=== PATIENT | female | born 1980 | race Caucasian/White ===

== ENCOUNTER 2016-09-24 11:38 | Observation (INO) | payer MEDICAID, OTHER ==
[~2016-09-24] VITALS: Ht 165.1 cm; Wt 51.0 kg
[~2016-09-24 11:38] MED LIST: QUET1TAB66 PO
[2016-09-24] MEDS ORDERED: ONDANSETRON HCL 4 MG/2 ML VIAL IV ONE (12:15)
[2016-09-24] MEDS ORDERED: cloNIDine HCL 0.1 MG TAB PO ONE (12:15)
[2016-09-24] MEDS ORDERED: SUCRALFATE 1 GM TAB PO ONE (12:15)
[2016-09-24] MEDS: LACTATED RINGER'S 1000 ML INJ 1,000 ML IV SCH ×3 (12:43→21:45)
--- NOTE | 2016-09-24 12:47 | PD ---
HPI Chief Complaint Severe nausea and vomiting at 16 weeks weaning of methadone to oxycodone and then to buprenorphine (from long acting to short acting to partial agonist) Date Seen: September 24, 2016 Time Seen: 12:16 Travel History International Travel<30 Days: No Contact w/Intl Traveler<30Days: No Known Affected Area: No History of Present Illness HPI 36 yo swf at 16 weeks referred to me by [facility] for high risk situation of methadone maintenance and hep C. First seen at 13 weeks EGA. 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 She began substance use consistently about 10- 12 years ago. This was IV and oral. She has been on methadone and no other substances other than cigarettes for two years. Since coming to [place] she has gone to the [facility] and paid $17 in [place] daily for her methadone. This was an unplanned but she desires to keep the and the child. She presented early to the [facility] for labs and then to our office for ultrasound. She told her [facility] counselor she was newly and in four weeks her methadone was increased from 90 to 170 mg. She was nodding off while at work and driving and did not want to continue this increasing dosage. She lost her job because of the nodding in the first half of the day. She was told this was necessary to protect the baby. At her first visit in my office she begged to be detoxed from the methadone or switched to buprenorphine. She was distraught and ashamed. We reviewed that she cannot be detoxed from methadone with daily doses greater than 40 mg per day at [place], nor would it be safe to do so on an outpatient basis. We reviewed that transitioning from methadone to buprenorphine would require a methadone free interval of up to a week or more and therefore was not possible. We reviewed that the standard of care was methadone, but in split doses as opposed to the rapid increase in single dosing in the first trimester. The current dose is quite high, difficult to afford and difficult to obtain daily, requiring daily trips to [facility]. We reviewed her status and discussed this situation with her mom and her dad on two separate occasions. She signed treatment plans and consents and we have agreed to try transitioning from methadone 170 to oxycodone (amount to be determined) and then to subutex through an office induction. She began this on Sunday the first. She was started on 120 mg oxycodone in divided doses and has not been to [facility] since. She was seen again on Sunday and has having some signs of withdrawal. She called today with severe nausea, vomiting and inability to hold down any oral intake. It is not clear if this is strictly related to transition or if her daughter brought home a GI virus from school. She has no fever. She denies diarrhea so far. She is having leg pains, restless legs, goose bumps and irritability. She is visibly dehydrated with dry lips and poor skin turgor. She is brought in for supportive care presuming this may be GI or infectious and exacerbated by the transitioning to short acting opioid. She is hep C positive, HIV, RPR,Hep B negative. History Past Medical History Medical History: Denies Significant Hx Obstetric History Obstetric History one term at 5 1/2 pounds now 7 years old Past Surgical History Narrative Surgical implants only Allergies-Medications (Allergen,Severity, Reaction): Coded Allergies: No Known Allergies (Verified , 09/06/09) Home Meds Active Scripts Quetiapine Fumarate (Seroquel)300 Mg [id number] Mg PO HS 30 Days Prov:See Greenberg MD 09/07/09 Reported Medications Quetiapine Fumarate (Seroquel)300 Mg [id number] Mg PO HS 09/06/09 Review of Systems General / Constitutional: No: Fever, Weight Gain, Chills, Other Eyes: No: Diploplia, Blurred Vision, Visual changes, Pain, Photophobia HENT: No: Headaches, Vertigo, Lightheadedness Cardiovascular: No: Irregular Rhythm, Chest Pain or Discomfort, Palpitations, Tachycardia, Syncope, Varicosities, Edema, Cyanosis Respiratory: No: Cough, Short of Breath, Other Gastrointestinal: Nausea, Vomiting, Abdominal Pain, Indigestion, No: Diarrhea Genitourinary: No: Decreased Urinary Output, Oliguria Musculoskeletal: No: Limited ROM, Weakness, Cramping, Edema, Pain Skin: No Rash, No Itching, No Dryness, No Lumps, No Change in Pigmentation, No Change in Nails, No Alopecia, No Lesions Neurologic: No: Weakness, Dizziness, Syncope, Focal Abnormalities, Coordination Problem, Headache, Slurred Speech, Seizures Psychiatric: Anxiety, Substance Abuse, No: Depression, Suicidal Ideations, Homicidal Ideation Endocrine: No: Heat Intolerance, Cold Intolerance, Polydipsia, Polyuria, Other Physical Exam Narrative GENERAL:thin, dehydrated SKIN: lips cracked, poor skin turgor HEAD: Normocephalic and atraumatic. EYES: No scleral icterus. No injection or drainage. Pupils neither pin point nor dilated ENT: No nasal drainage noted. no sneezing NECK: Supple, trachea midline. No JVD. CARDIOVASCULAR: Regular rate and rhythm without murmurs, gallops, or rubs. RESPIRATORY: Breath sounds equal bilaterally. No accessory muscle use. BREASTS: Bilateral exam showed no masses , no retractions, no nipple discharge. ABDOMEN/GI: Abdomen soft, non-tender, bowel sounds present, no rebound, no guarding 16 week size uterus and + FHTs EXTREMITIES: No cyanosis or edema. old track arvizu on left arm only. Right is fine. Nothing new BACK: Nontender without obvious deformity. No CVA tenderness. NEUROLOGICAL: Awake and alert. Motor and sensory grossly within normal limits. Five out of 5 muscle strength in all muscle groups. Normal speech. Data Data Orders Vital Signs (Adult) .ON ADMISSION (09/24/16 12:11) Urinalysis - C+S If Indicated (09/24/16 12:11) ^ Hydration (09/24/16 12:11) Cbc No Diff, Includes Plts (09/24/16 12:11) Comprehensive Metabolic Panel (09/24/16 12:11) Basic Metabolic Panel (Bmp) (09/24/16 12:11) Lactated Ringer's 1000 Ml Inj (Lr 1000 M (09/24/16 12:11) Sodium Chloride 0.9% Flush (Ns Flush) (09/24/16 21:00) Ondansetron Inj (Zofran Inj) (09/24/16 12:15) Sucralfate (Carafate) (09/24/16 12:15) Ob/Psych Drug Screen, Urine (09/24/16 12:11) Hydroxyzine Pamoate (Vistaril) (09/24/16 12:15) Clonidine (Catapres) (09/24/16 12:15) Oxycodone (Roxicodone) (09/24/16 12:15) MDM Medical Record Reviewed: Yes Narrative Course / MDM 16 week IUP Gastro enteritis vs hyperemesis gravidarum -- inability to tolerate any po opioid use disorder hep C Plan IV hydration check TSH, LFTs, CBC UA continue transition to oxycodone watch 24 hours Critical Care Time (mins): 20 Diagnosis Diagnosis: Primary Impression: Nausea and vomiting during prior to 22 weeks gestation Additional Impression: Opioid use disorder, moderate, in controlled environment Lisette Whitney MD September 24, 2016 12:47
[2016-09-24] MEDS ORDERED: SODIUM CHLORIDE 0.9% FLUSH 10 ML FLUSH IV FLUSH PRN (13:00)
[2016-09-24 13:14] LABS: HEMATOCRIT 34.4 % (35.0-46.0); MEAN CELL VOLUME 92.4 FL (80.0-100.0); MEAN CORPUSCULAR HEMOGLOBIN 31.2 PG (27.0-34.0); MEAN CORPUSCULAR HGB CONC 33.8 % (32.0-36.0); PLATELET COUNT 225 TH/MM3 (150-450); RED BLOOD COUNT 3.72 MIL/MM3 (4.00-5.30); RED CELL DISTRIBUTION WIDTH 13.3 % (11.6-17.2); REVIEW FLAG FINAL; WHITE BLOOD COUNT 8.6 TH/MM3 (4.0-11.0)
[2016-09-24 13:23] LABS: BACTERIA, URINE RARE /hpf; BLOOD, URINE NEG (NEG); COMMENT (UR) CULT NOT INDICATED; CULTURE IF INDICATED CULT NOT INDICATED; GLUCOSE,URINE NEG (NEG); KETONE, URINE NEG (NEG); MUCUS URINE FEW /lpf (OCC); NITRITE,URINE NEG (NEG); PH, URINE 5.5 (5.0-8.5); SQUAMOUS EPITHELIAL CELL URINE 1 /hpf (0-5); URINE COLOR LIGHT-YELLOW (YELLW/STRAW)
[2016-09-24 13:27] LABS: AMPHETAMINE, URINE NEG (NEG); BARBITURATES, URINE NEG (NEG); COCAINE, URINE NEG (NEG)
[2016-09-24 13:36] LABS: ALT (GPT) 17 U/L (10-53); ANION GAP 7 MEQ/L (5-15); AST (GOT) 12 U/L (15-37); BICARBONATE 24.1 MEQ/L (21.0-32.0); BLOOD UREA NITROGEN 6 MG/DL (7-18); CHLORIDE 110 MEQ/L (98-107); GLOMERULAR FILTRATION RATE 152 ML/MIN (>89); POTASSIUM 4.1 MEQ/L (3.5-5.1); SODIUM (NA) 141 MEQ/L (136-145)
[2016-09-24 13:39] LABS: ALKALINE PHOSPHATASE 45 U/L (45-117); TOTAL BILIRUBIN ADULT LESS THAN 0.1 MG/DL (0.2-1.0)
[2016-09-24 13:49] VITALS: BP 93/55; PULSE 61
[2016-09-24 14:00] VITALS: RESP 17
[2016-09-24 18:02] VITALS: BP 88/49; PULSE 75; RESP 20; TEMP 98
[2016-09-24 19:38] VITALS: BP 97/50; PULSE 73
[2016-09-24] MEDS: cloNIDine HCL 0.1 MG TAB PO PRN (19:46)
[2016-09-24 20:00] VITALS: RESP 18
[2016-09-24] MEDS: SODIUM CHLORIDE 0.9% FLUSH 10 ML FLUSH IV FLUSH SCH (21:00)
[2016-09-24] MEDS ORDERED: SODIUM CHLORIDE 0.9% FLUSH 10 ML FLUSH IV FLUSH SCH (21:00)
[2016-09-24] MEDS ORDERED: LORazepam 1 MG TAB PO ONE (22:00)
[2016-09-25] VITALS (17 sets, daily range): BP systolic 80–104; BP diastolic 40–84; PULSE 63–123; RESP 16–18; TEMP 98.1–98.6
[2016-09-25] MEDS: cloNIDine HCL 0.1 MG TAB PO PRN ×2 (02:06→14:01)
[2016-09-25] MEDS: LACTATED RINGER'S 1000 ML INJ 1,000 ML IV SCH (06:08)
--- NOTE | 2016-09-25 08:22 | PD.OB.ANTE ---
Subjective Interval History With hydration she is now tolerating fluids and solids orally. Didn't sleep last night because she slept all day on Sunday. Now voiding and no diarrhea. Objective Vital Signs Vital Signs Date Time Temp Pulse Resp B/P Pulse Ox O2 Delivery O2 Flow Rate FiO2 09/25/16 06:45 16 09/25/16 06:10 69 80/41 09/25/16 04:28 18 09/25/16 04:07 66 86/47 09/25/16 04:05 98.3 09/25/16 02:32 18 09/25/16 02:24 74 91/48 09/25/16 02:08 20 09/25/16 00:02 98.2 18 09/25/16 00:01 63 92/50 09/24/16 20:00 18 09/24/16 19:38 73 97/50 09/24/16 18:02 98.0 75 20 88/49 09/24/16 14:00 17 09/24/16 13:49 61 93/55 Lab & Micro Results Test 09/24/16 09/24/16 12:30 12:35 Urine Color LIGHT-YELLOW Urine Turbidity CLEAR Urine pH 5.5 Urine Specific [place] 1.003 Urine Protein NEG mg/dL Urine Glucose (UA) NEG mg/dL Urine Ketones NEG mg/dL Urine Occult Blood NEG Urine Nitrite NEG Urine Bilirubin NEG Urine Urobilinogen LESS THAN 2.0 MG/DL Urine Leukocyte Esterase NEG Urine WBC LESS THAN 1 /hpf Urine Squamous Epithelial 1 /hpf Cells Urine Bacteria RARE /hpf Urine Mucus FEW /lpf Microscopic Urinalysis Comment CULT NOT INDICATED Urine Opiates Screen NEG Urine Barbiturates Screen NEG Urine Amphetamines Screen NEG Urine Benzodiazepines Screen POS Urine Cocaine Screen NEG Urine Cannabinoids Screen NEG White Blood Count 8.6 TH/MM3 Red Blood Count 3.72 MIL/MM3 Hemoglobin 11.6 GM/DL Hematocrit 34.4 % Mean Corpuscular Volume 92.4 FL Mean Corpuscular Hemoglobin 31.2 PG Mean Corpuscular Hemoglobin 33.8 % Concent Red Cell Distribution Width 13.3 % Platelet Count 225 TH/MM3 Mean Platelet Volume 7.9 FL Sodium Level 141 MEQ/L Potassium Level 4.1 MEQ/L Chloride Level 110 MEQ/L Carbon Dioxide Level 24.1 MEQ/L Anion Gap 7 MEQ/L Blood Urea Nitrogen 6 MG/DL Creatinine 0.46 MG/DL Estimat Glomerular Filtration 152 ML/MIN Rate Random Glucose 92 MG/DL Calcium Level 8.4 MG/DL Total Bilirubin LESS THAN 0.1 MG/DL Aspartate Amino Transf 12 U/L (AST/SGOT) Alanine Aminotransferase 17 U/L (ALT/SGPT) Alkaline Phosphatase 45 U/L Total Protein 6.0 GM/DL Albumin 2.9 GM/DL Thyroid Stimulating Hormone 0.384 uIU/ML 3rd Gen Physical Exam GENERAL: Well-nourished, well-developed patient. CARDIOVASCULAR: Regular rate and rhythm without murmurs, gallops, or rubs. RESPIRATORY: Breath sounds equal bilaterally. No accessory muscle use. ABDOMEN/GI: Abdomen soft, non-tender. Fundus: [-] GENITOURINARY: External Genitalia: intact and normal in appearance EXTREMITIES: No cyanosis or edema, non-tender, without signs of DVT. Assessment and Plan Assessment and Plan keep 24 hours to adjust medications and assure oral intake, reduce severe anxiety long discussion on planned transition from oxycodone to subutex. She acknowledged today that she has been using xanax bars intermittently for anxiety. I explained the importance of complete disclosure and that sudden withdrawal from benzodiazepines could cause seizures. 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 She will go home tomorrow in charge of her own meds--to suceed or failure on her own and get 2-3 days worth at a time, coming to office twice weekly. Goal is to get down to 60 mg oxy and then planned withdrawal from short acting oxy to subutex--up to 24 mg per 24 hours. Zoloft 100 mg daily and supportive meds for anxiety and shakes as needed. Lisette Whitney MD September 25, 2016 08:22
[2016-09-25] MEDS: SODIUM CHLORIDE 0.9% FLUSH 10 ML FLUSH IV FLUSH SCH ×2 (09:00→23:50)
[2016-09-25] MEDS: clonazePAM 0.5 MG TAB PO SCH ×2 (10:15→20:41)
[2016-09-25] MEDS ORDERED: GABAPENTIN 300 MG CAP PO ONE (15:45)
[2016-09-25] MEDS ORDERED: clonazePAM 1 MG TAB PO ONE (17:45)
[2016-09-26] VITALS (14 sets, daily range): BP systolic 84–99; BP diastolic 44–53; PULSE 70–92; RESP 16–18; TEMP 97.8–98.4
--- NOTE | 2016-09-26 08:13 | PD.OB.ANTE ---
Subjective Interval History Still having significant nausea and emesis, unable to hold down any solids states her anxiety is through the roof--the worst it has ever been no leaking, bleeding, discharge Objective Vital Signs Vital Signs Date Time Temp Pulse Resp B/P Pulse Ox O2 Delivery O2 Flow Rate FiO2 09/26/16 07:12 98.1 09/26/16 07:12 18 09/26/16 07:11 70 90/53 09/26/16 02:45 18 09/26/16 02:44 70 84/44 09/25/16 20:19 98.1 68 18 84/47 09/25/16 16:00 98.6 18 09/25/16 15:55 73 92/50 09/25/16 13:00 98.3 09/25/16 12:34 123 16 104/84 09/25/16 09:03 66 85/40 09/25/16 09:00 98.5 18 09/25/16 08:59 66 83/42 Physical Exam GENERAL: Well-nourished, well-developed patient. CARDIOVASCULAR: Regular rate and rhythm without murmurs, gallops, or rubs. RESPIRATORY: Breath sounds equal bilaterally. No accessory muscle use. ABDOMEN/GI: Abdomen soft, non-tender. EXTREMITIES: No cyanosis or edema, non-tender, without signs of DVT. Assessment and Plan Assessment and Plan Not yet able to maintain oral intake hyperemesis gravidarum compounded by transition in opioid maintenance long discussion on planned transition from oxycodone to subutex. She acknowledged today that she has been using xanax bars intermittently for anxiety. I explained the importance of complete disclosure and that sudden withdrawal from benzodiazepines could cause seizures. I explained we don't want her on correction chronic benzo's BUT we need to cover the anxiety and restless legs with 0.5 klonipin BID She needs to be able to hold down po. Need to resume IV today and add phenergan and gabapentin. She needs to be in charge of her own meds--to suceed or failure on her own and get 2-3 days worth at a time, coming to office twice weekly. Goal is to get down to 60 mg oxy and then planned withdrawal from short acting oxy to subutex-- up to 24 mg per 24 hours. Zoloft 100 mg daily and supportive meds for anxiety and shakes as needed. Carbiener,Lisette René MD September 26, 2016 08:13
[2016-09-26] MEDS ORDERED: PROMETHAZINE HCL 25 MG TAB PO PRN (09:00)
[2016-09-26] MEDS: SODIUM CHLORIDE 0.9% FLUSH 10 ML FLUSH IV FLUSH SCH ×2 (09:00→20:37)
[2016-09-26] MEDS: SERTRALINE HCL 50 MG TAB PO SCH (09:21)
[2016-09-26] MEDS: GABAPENTIN 300 MG CAP PO SCH ×3 (09:22→18:28)
[2016-09-26] MEDS: LACTATED RINGER'S 1000 ML INJ 1,000 ML IV SCH ×2 (09:23→20:15)
[2016-09-26] MEDS: PRAZOSIN HCL 1 MG CAP PO SCH ×2 (09:37→21:00)
[2016-09-26] MEDS: clonazePAM 0.5 MG TAB PO PRN ×2 (11:46→18:29)
--- NOTE | 2016-09-26 22:03 | PD.OB.ANTE ---
Subjective Interval History May have had an unattended fall. Found sitting on floor with low BP Full exam by RNs reassuring. At 9pm she is expressing anxiety. She had klonipin 0.5 at 6 pm. Vistaril 1 hour ago. I am holding her prazosin tonight and lowering the gabapentin and visteral dose. I am not giving additional medication tonight for her expression of anxiety. Tomorrow we will discuss dealing with low levels of anxiety and not treatment every discomfort or suggestion of dysphoria. Will discharge tomorrow on the established meds and follow every 72 hours. Objective Vital Signs Vital Signs Date Time Temp Pulse Resp B/P Pulse Ox O2 Delivery O2 Flow Rate FiO2 09/26/16 21:27 72 95/51 09/26/16 20:36 97.8 09/26/16 20:16 77 16 99/48 09/26/16 15:55 98.4 18 09/26/16 15:53 73 88/44 09/26/16 11:52 92 91/53 09/26/16 11:51 98.4 09/26/16 11:51 18 09/26/16 07:12 98.1 09/26/16 07:12 18 09/26/16 07:11 70 90/53 09/26/16 02:45 18 09/26/16 02:44 70 84/44 Physical Exam GENERAL: Well-nourished, well-developed patient. CARDIOVASCULAR: Regular rate and rhythm without murmurs, gallops, or rubs. RESPIRATORY: Breath sounds equal bilaterally. No accessory muscle use. ABDOMEN/GI: Abdomen soft, non-tender. Fundus: [-] GENITOURINARY: External Genitalia: intact and normal in appearance Cervix: [-] Dilatation: [-] Effacement: [-] Station: [-] Presentation: [-] Membranes: [-] Uterine Contractions: [-] FHT's: Category: [-] Baseline: [-] Reactive: [-] Variability: [-] Decels: [-] EXTREMITIES: No cyanosis or edema, non-tender, without signs of DVT. Assessment and Plan Assessment and Plan Not yet able to maintain oral intake hyperemesis gravidarum compounded by transition in opioid maintenance long discussion on planned transition from oxycodone to subutex. She acknowledged today that she has been using xanax bars intermittently for anxiety. I explained the importance of complete disclosure and that sudden withdrawal from benzodiazepines could cause seizures. 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 Need to resume IV today and add phenergan and gabapentin. She needs to be in charge of her own meds--to suceed or failure on her own and get 2-3 days worth at a time, coming to office twice weekly. Goal is to get down to 60 mg oxy and then planned withdrawal from short acting oxy to subutex-- up to 24 mg per 24 hours. Zoloft 100 mg daily and supportive meds for anxiety and shakes as needed. Lisette Whitney MD September 26, 2016 22:03
--- NOTE | 2016-09-26 22:04 | HHI.DCPOC ---
Discharge Care Plan Report Symptoms to Your Doctor -Temperate above 100.5 degrees -Redness, of incision or excessive or foul smelling drainage -Unusual pain or calf pain -Increased vaginal bleeding -Painful or difficulty urinating -Feelings of extreme sadness or anxiety after 2 weeks Goals to Promote Your Health * To prevent worsening of your condition and complications * To maintain your health at the optimal level Directions to Meet Your Goals Take your medications as prescribed Follow your dietary instruction Follow activity as directed Ensure plenty of rest for recovery Drink fluids for hydration Keep your appointments as scheduled Take your immunizations and boosters as scheduled If your symptoms worsen call your PCP, if no PCP go to Urgent Care Center or Emergency Room Smoking is Dangerous to Your Health. Avoid second hand smoke Call the 24-hour crisis hotline for domestic abuse at Lisette Whitney MD September 26, 2016 22:04
[2016-09-26] MEDS ORDERED: hydrOXYzine PAMOATE 25 MG CAP PO PRN (22:15)
[2016-09-27 04:00] VITALS: RESP 16; TEMP 97.8
[2016-09-27 04:06] VITALS: BP 86/40; PULSE 81
[2016-09-27 07:48] VITALS: BP 96/55; PULSE 89
[2016-09-27 07:50] VITALS: RESP 24
[2016-09-27] MEDS ORDERED: LORazepam 2 MG/ML VIAL ONE (07:59)
--- NOTE | 2016-09-27 08:14 | PD.OB.ANTE ---
Subjective Interval History Had a bad night with intermittent episodes of severe anxiety. [place] like having a heart attack. SOB, nauseas, needing to flee--when interviewed more in depth she acknowledges 2 bars xanax bid, which she was aftraid to divulge. COWs score today 6: she is not withdrawing from opioids at this time. Distraught about leaving and being unattended, afraid this extreme axiety will push her to use on street. Trying to impress upon her that the hyperemesis due to benzo withdrawal, as is ALL her symptoms at this point. Have all her meds listed out and written with explanations. Will see in office tomorrow Objective Vital Signs Vital Signs Date Time Temp Pulse Resp B/P Pulse Ox O2 Delivery O2 Flow Rate FiO2 09/27/16 07:50 24 09/27/16 07:48 89 96/55 09/27/16 04:06 81 86/40 09/27/16 04:00 16 09/27/16 04:00 97.8 09/26/16 23:52 98.0 09/26/16 23:51 16 09/26/16 23:50 75 92/50 09/26/16 21:27 72 95/51 09/26/16 20:36 97.8 09/26/16 20:16 77 16 99/48 09/26/16 15:55 98.4 18 09/26/16 15:53 73 88/44 09/26/16 11:52 92 91/53 09/26/16 11:51 98.4 09/26/16 11:51 18 Physical Exam GENERAL: Well-nourished, well-developed patient. CARDIOVASCULAR: Regular rate and rhythm without murmurs, gallops, or rubs. RESPIRATORY: Breath sounds equal bilaterally. No accessory muscle use. ABDOMEN/GI: Abdomen soft, non-tender. Fundus: [-] GENITOURINARY: External Genitalia: intact and normal in appearance Cervix: [-] Dilatation: [-] Effacement: [-] Station: [-] Presentation: [-] Membranes: [-] Uterine Contractions: [-] FHT's: Category: [-] Baseline: [-] Reactive: [-] Variability: [-] Decels: [-] EXTREMITIES: No cyanosis or edema, non-tender, without signs of DVT. Assessment and Plan Assessment and Plan Not yet able to maintain oral intake hyperemesis gravidarum compounded by transition in opioid maintenance long discussion on planned transition from oxycodone to subutex. She acknowledged today that she has been using xanax bars intermittently for anxiety. I explained the importance of complete disclosure and that sudden withdrawal from benzodiazepines could cause seizures. I explained we don't want her on usp chronic benzo's BUT we need to cover the anxiety and restless legs with 0.5 klonipin BID She needs to be able to hold down po. Need to resume IV today and add phenergan and gabapentin. She needs to be in charge of her own meds--to suceed or failure on her own and get 2-3 days worth at a time, coming to office twice weekly. Goal is to get down to 60 mg oxy and then planned withdrawal from short acting oxy to subutex-- up to 24 mg per 24 hours. Zoloft 100 mg daily and supportive meds for anxiety and shakes as needed. Lisette Whitney MD September 27, 2016 08:14
[2016-09-27] MEDS ORDERED: ZOLO50TA PO (08:17)
[2016-09-27] MEDS ORDERED: PROM25TA5 PO (08:17)
[2016-09-27] MEDS ORDERED: PRAZ1 PO (08:17)
[2016-09-27] MEDS ORDERED: OXYC-395 PO (08:17)
[2016-09-27] MEDS ORDERED: CLON.5 PO (08:19)
[2016-09-27] MEDS ORDERED: NEUR300C PO (08:19)
[2016-09-27] MEDS ORDERED: HYDR1CAP30 PO (08:22)
[2016-09-27] MEDS ORDERED: GABAPENTIN 300 MG CAP PO SCH ×2 (09:00)
[2016-09-27] MEDS: PRAZOSIN HCL 1 MG CAP PO SCH (09:21)
[2016-09-27] MEDS: SERTRALINE HCL 50 MG TAB PO SCH (09:22)
[2016-09-27] MEDS ORDERED: clonazePAM 0.5 MG TAB PO SCH (12:00)
[2016-09-27 14:39] LABS: PHENCYCLIDINE URINE NEG (NEG)
[2016-09-27 14:41] LABS: BATH SALTS (MDPV) UR NEG (NEG); ECSTASY (MDMA) UR NEG (NEG); HEROIN (6-ACETYLMORPHINE) UR NEG (NEG); K2 SPICE UR NEG (NEG); OBMETHADONE UR POS (NEG)
[2016-09-27 14:44] LABS: GABAPENTIN UR NEG (NEG); HYDROMORPHONE U NEG (NEG); OXYCODONE (PERCODAN) POS (NEG)
== END 2016-09-27 11:35 | disposition home or self-care (01) ==
LOC: HOBED 11:38 → H2EA 13:06
PROVIDERS: ADMIT Obstetrics & Gynecology; ATTEND Obstetrics & Gynecology
DX: O21.0 Mild hyperemesis gravidarum (principal); O09.522 Supervision of elderly multigravida, second trimester; O99.322 Drug use complicating pregnancy, second trimester; F11.90 Opioid use, unspecified, uncomplicated; O99.342 Other mental disorders complicating pregnancy, second trimester; F41.9 Anxiety disorder, unspecified; O98.412 Viral hepatitis complicating pregnancy, second trimester; B19.20 Unspecified viral hepatitis C without hepatic coma; Z3A.16 16 weeks gestation of pregnancy
CPT/HCPCS: 80053; 80307; 81001; 84443; 85027; 96374; 99283; G0378; G0481; J2060; J2405; J7120; Q0169; Q0177

== ENCOUNTER 2016-10-05 10:18 | Observation (INO) | payer MEDICAID, OTHER ==
[~2016-10-05] VITALS: Ht 170.2 cm; Wt 51.7 kg
[2016-10-05] VITALS (11 sets, daily range): BP systolic 95–99; BP diastolic 46–61; PULSE 87–90; RESP 16–18; TEMP 98–98.6
[~2016-10-05 10:18] MED LIST changes: +CLON.5 PO; +HYDR1CAP30 PO; +NEUR300C PO; +OXYC-395 PO; +PRAZ1 PO; +PROM25TA5 PO; -QUET1TAB66 PO; +ZOLO50TA PO
[2016-10-05] MEDS ORDERED: DEXT 5%-NACL 0.9% 500 ML INJ 500 ML IV ONE (11:15)
[2016-10-05] MEDS ORDERED: ONDANSETRON HCL 4 MG/2 ML VIAL IV PRN (11:15)
[2016-10-05] MEDS ORDERED: SODIUM CHLORIDE 0.9% FLUSH 10 ML FLUSH IV FLUSH PRN (11:15)
[2016-10-05] MEDS ORDERED: LORazepam 2 MG/ML VIAL IM ONE (11:30)
[2016-10-05] MEDS ORDERED: ONDANSETRON HCL 4 MG/2 ML VIAL ONE (11:34)
[2016-10-05 11:37] LABS: AUTOMATED NEUTROPHIL # 5.7 TH/MM3 (1.8-7.7); BASOPHIL % 0.3 % (0.0-2.0); EOSINOPHIL % 0.4 % (0.0-4.0); HEMATOCRIT 30.6 % (35.0-46.0); HEMO FLAGS DIFF FINAL; LYMPH % 10.4 % (9.0-44.0); LYMPHOCYTE # 0.8 TH/MM3 (1.0-4.8); MEAN CELL VOLUME 90.8 FL (80.0-100.0); MEAN CORPUSCULAR HGB CONC 35.2 % (32.0-36.0); MONO % 11.5 % (0.0-8.0); NEUT % 77.4 % (16.0-70.0); PLATELET COUNT 157 TH/MM3 (150-450); RED BLOOD COUNT 3.37 MIL/MM3 (4.00-5.30); RED CELL DISTRIBUTION WIDTH 12.8 % (11.6-17.2); WHITE BLOOD COUNT 7.4 TH/MM3 (4.0-11.0)
[2016-10-05] MEDS: PROMETHAZINE HCL 25 MG TAB PO PRN ×2 (11:37→19:51)
[2016-10-05] MEDS: LACTATED RINGER'S 1000 ML INJ 1,000 ML IV SCH ×2 (11:43→12:45)
[2016-10-05] MEDS ORDERED: clonazePAM 0.5 MG TAB PO SCH (12:00)
[2016-10-05 12:04] LABS: ANION GAP 11 MEQ/L (5-15); BICARBONATE 23.5 MEQ/L (21.0-32.0); BLOOD UREA NITROGEN 5 MG/DL (7-18); CHLORIDE 105 MEQ/L (98-107); GLOMERULAR FILTRATION RATE 202 ML/MIN (>89); POTASSIUM 3.4 MEQ/L (3.5-5.1); SODIUM (NA) 139 MEQ/L (136-145)
[2016-10-05 12:06] LABS: AMPHETAMINE, URINE NEG (NEG); BARBITURATES, URINE NEG (NEG); COCAINE, URINE NEG (NEG)
--- NOTE | 2016-10-05 13:03 | HHI.HP ---
HPI Chief Complaint Nausea, vomiting and spotting at 16+ weeks Date Seen: October 05, 2016 Travel History International Travel<30 Days: No Contact w/Intl Traveler<30Days: No Known Affected Area: No History of Present Illness HPI 36 yo wf at 16+ weeks EGKristen returns one week after discharge for hyperemesis with same symptoms. States has held down no food or liquids since Sunday. Distraught about recent loss of two friends. She believes she is also withdrawing, because she has been unable to hold down her opioids or other medications. No fever, or diarrhea. Very chilled and scratching at her skin. She brought in pictures of four pads from yesterday which had moderate blood Para: 1 History Past Medical History Narrative Medical long history of opioid dependence. In the last two years she was on 90 mg methadone daily. When she told [facility] of her at 9 weeks she was quickly increased to 170 mg daily. She was nodding at work and lost her job and could not longer afford the legal opioid. She came to my practice as a transfer from the [facility] asking to eventually be transitioned to subutex. We are doing this in a step chirinos fashion--to a short acting oxycodone and then to subutex or vivitrol. She has not had methadone since September 19 (over two weeks) she has been stable on 120 oxycodone. She did reveal she was getting xanax for severe anxiety and I have put her on klonpin 1 mg TID in short term. Also on zoloft 150. We have alternated trying vistaril and prazoxin for anxiety with little improvement. She states she may also be in withdrawal and COW is 15. Obstetric History Obstetric History one term 7 yo and in her care Past Surgical History Surgical History: No Previous Surgery Social History Narrative Social History living with parents and daughter. Recently lost job recently lost two friends to drug overdose Alcohol Use: No Tobacco Use: No Substance Abuse: Yes Allergies-Medications (Allergen,Severity, Reaction): Coded Allergies: No Known Allergies (Verified , 10/05/16) Home Meds Active Scripts Hydroxyzine Pamoate 25 Mg Cap25 Mg PO Q6H PRN (SKIN CRAWLING) #90 CAP Prov:Lisette Whitney MD 09/27/16 Gabapentin (Neurontin)300 Mg [id number] Mg PO TID #21 CAP Prov:Lisette Whitney MD 09/27/16 Clonazepam (Klonopin)0.5 Mg Tab0.5 Mg PO Q6HR #12 TAB Prov:Lisette Whitney MD 09/27/16 Oxycodone 10 Mg Tab30 Mg PO Q6H #12 TAB Prov:Lisette Whitney MD 09/27/16 Prazosin (Minipress)1 Mg Cap1 Mg PO Q12HR #30 CAP Prov:Lisette Whitney MD 09/27/16 Promethazine (Phenergan)25 Mg Tab25 Mg PO Q6H PRN (nausea and vomiting) #20 TAB Prov:Lisette Whitney MD 09/27/16 Sertraline (Zoloft)50 Mg Tab50 Mg PO DAILY #90 TAB Prov:Lisette Whitney MD 09/27/16 Review of Systems General / Constitutional: Weight Loss, Chills HENT: Lightheadedness Cardiovascular: Palpitations, Tachycardia Gastrointestinal: Nausea, Vomiting Neurologic: Headache Psychiatric: Anxiety, Depression, Substance Abuse Endocrine: Cold Intolerance Physical Exam Vital Signs Date Time Temp Pulse Resp B/P Pulse Ox O2 Delivery O2 Flow Rate FiO2 10/05/16 12:00 98.5 10/05/16 12:00 18 10/05/16 11:00 17 10/05/16 10:51 89 95/61 Narrative GENERAL: Well-nourished, well-developed patient. SKIN: Warm and dry. HEAD: Normocephalic and atraumatic. EYES: No scleral icterus. No injection or drainage. ENT: No nasal drainage noted. Mucous membranes pink. Airway patent. NECK: Supple, trachea midline. No JVD. CARDIOVASCULAR: Regular rate and rhythm without murmurs, gallops, or rubs. RESPIRATORY: Breath sounds equal bilaterally. No accessory muscle use. BREASTS: Bilateral exam showed no masses , no retractions, no nipple discharge. ABDOMEN/GI: Abdomen soft, non-tender, bowel sounds present, no rebound, no guarding FHTs + EXTREMITIES: No cyanosis or edema. BACK: Nontender without obvious deformity. No CVA tenderness. NEUROLOGICAL: Awake and alert. Motor and sensory grossly within normal limits. Five out of 5 muscle strength in all muscle groups. Normal speech. COW score [address] In Observation (10/05/16 ) Diet Npo (10/05/16 Lunch) Vital Signs (Adult) [id number] AWAKE (10/05/16 11:08) Heart YOSSI.QSHIFT (10/05/16 11:08) Activity Oob Ad Nelida (10/05/16 11:08) Complete Blood Count With Diff (10/05/16 11:08) Basic Metabolic Panel (Bmp) (10/05/16 11:08) Docusate Sodium (Colace) (10/06/16 09:00) Sodium Chloride 0.9% Flush (Ns Flush) (10/05/16 21:00) Sodium Chloride 0.9% Flush (Ns Flush) (10/05/16 11:15) Ondansetron Inj (Zofran Inj) (10/05/16 11:15) Ob/Psych Drug Screen, Urine (10/05/16 11:08) Hold Clot (10/05/16 11:08) Clonazepam (Klonopin) (10/05/16 12:00) Gabapentin (Neurontin) (10/05/16 13:00) Prazosin (Minipress) (10/05/16 21:00) Promethazine (Phenergan) (10/05/16 11:15) Sertraline (Zoloft) (10/06/16 09:00) Oxycodone (Roxicodone) (10/05/16 11:15) Dext 5%-Nacl 0.9% 500 Ml Inj (D5w-Ns 500 (10/05/16 11:15) Ondansetron Inj (Zofran Inj) (10/05/16 14:00) Lactated Ringer's 1000 Ml Inj (Lr 1000 M (10/05/16 11:30) Lorazepam Inj (Ativan Inj) (10/05/16 11:30) Comprehensive Metabolic Panel (10/05/16 11:26) Thyroid Stimulating Hormone (10/05/16 11:26) Urine Culture (10/05/16 11:26) Specimen To Be Collected PRN (10/05/16 11:26) Ondansetron Inj (Zofran Inj) (10/05/16 11:34) Abo/Rh Blood Type (10/05/16 11:48) Ur Bath Salts (10/05/16 10:50) Ur Heroin (10/05/16 10:50) Ur K2 Spice (10/05/16 10:50) Ur Ecstasy (10/05/16 10:50) Ur Methadone (10/05/16 10:50) Phencyclidine Urine (Pcp) (10/05/16 10:50) Labs Laboratory Tests Test 10/05/16 10/05/16 10:50 11:51 White Blood Count 7.4 Red Blood Count 3.37 Hemoglobin 10.8 Hematocrit 30.6 Mean Corpuscular Volume 90.8 Mean Corpuscular Hemoglobin 32.0 Mean Corpuscular Hemoglobin 35.2 Concent Red Cell Distribution Width 12.8 Platelet Count 157 Mean Platelet Volume 7.9 Neutrophils (%) (Auto) 77.4 Lymphocytes (%) (Auto) 10.4 Monocytes (%) (Auto) 11.5 Eosinophils (%) (Auto) 0.4 Basophils (%) (Auto) 0.3 Neutrophils # (Auto) 5.7 Lymphocytes # (Auto) 0.8 Monocytes # (Auto) 0.9 Eosinophils # (Auto) 0.0 Basophils # (Auto) 0.0 CBC Comment DIFF FINAL Differential Comment Sodium Level 139 Potassium Level 3.4 Chloride Level 105 Carbon Dioxide Level 23.5 Anion Gap 11 Blood Urea Nitrogen 5 Creatinine 0.36 Estimat Glomerular Filtration 202 Rate Random Glucose 99 Calcium Level 8.6 Urine Opiates Screen POS Urine Barbiturates Screen NEG Urine Amphetamines Screen NEG Urine Benzodiazepines Screen POS Urine Cocaine Screen NEG Urine Cannabinoids Screen NEG Band and Hold Blood Type A POSITIVE Blood Bank Comment Assessment/Plan Assessment and Plan hyperemesis gravidarum with secondary opioid and benzo withdrawal since not holding meds severe anxiety disorder Discharge Planning 23 hour observation focus on NV and then discharge on 120 oxycodone and klonipin 1 mg TID with supportive meds. See Parvez next week and me two weeks later Lisette Whitney MD October 05, 2016 13:03
[2016-10-05] MEDS: GABAPENTIN 300 MG CAP PO SCH ×2 (13:40→18:15)
[2016-10-05 13:45] LABS: ALKALINE PHOSPHATASE 57 U/L (45-117); ALT (GPT) 21 U/L (10-53); AST (GOT) 13 U/L (15-37); TOTAL BILIRUBIN ADULT 0.2 MG/DL (0.2-1.0)
[2016-10-05] MEDS ORDERED: ONDANSETRON INJ 8 MG in DEXTROSE 5% IN WATER INJ 50 ML IV PRN ×2 (14:00)
[2016-10-05] MEDS: clonazePAM 1 MG TAB PO SCH ×2 (15:00→16:06)
--- NOTE | 2016-10-05 18:30 | PD.OB.ANTE ---
Subjective Interval History With hydration and antiemetics she has improved greatly. Feeling much better. Would like to advance diet. Objective Vital Signs Vital Signs Date Time Temp Pulse Resp B/P Pulse Ox O2 Delivery O2 Flow Rate FiO2 10/05/16 17:25 16 10/05/16 16:37 17 10/05/16 16:37 98.3 10/05/16 16:08 87 99/46 10/05/16 12:00 98.5 10/05/16 12:00 18 10/05/16 11:00 17 10/05/16 10:51 89 95/61 Lab & Micro Results Test 10/05/16 10/05/16 10:50 11:51 White Blood Count 7.4 TH/MM3 Red Blood Count 3.37 MIL/MM3 Hemoglobin 10.8 GM/DL Hematocrit 30.6 % Mean Corpuscular Volume 90.8 FL Mean Corpuscular Hemoglobin 32.0 PG Mean Corpuscular Hemoglobin 35.2 % Concent Red Cell Distribution Width 12.8 % Platelet Count 157 TH/MM3 Mean Platelet Volume 7.9 FL Neutrophils (%) (Auto) 77.4 % Lymphocytes (%) (Auto) 10.4 % Monocytes (%) (Auto) 11.5 % Eosinophils (%) (Auto) 0.4 % Basophils (%) (Auto) 0.3 % Neutrophils # (Auto) 5.7 TH/MM3 Lymphocytes # (Auto) 0.8 TH/MM3 Monocytes # (Auto) 0.9 TH/MM3 Eosinophils # (Auto) 0.0 TH/MM3 Basophils # (Auto) 0.0 TH/MM3 CBC Comment DIFF FINAL Differential Comment Sodium Level 139 MEQ/L Potassium Level 3.4 MEQ/L Chloride Level 105 MEQ/L Carbon Dioxide Level 23.5 MEQ/L Anion Gap 11 MEQ/L Blood Urea Nitrogen 5 MG/DL Creatinine 0.36 MG/DL Estimat Glomerular Filtration 202 ML/MIN Rate Random Glucose 99 MG/DL Calcium Level 8.6 MG/DL Total Bilirubin 0.2 MG/DL Aspartate Amino Transf 13 U/L (AST/SGOT) Alanine Aminotransferase 21 U/L (ALT/SGPT) Alkaline Phosphatase 57 U/L Total Protein 6.4 GM/DL Albumin 2.9 GM/DL Thyroid Stimulating Hormone 0.408 uIU/ML 3rd Gen Urine Opiates Screen POS Urine Barbiturates Screen NEG Urine Amphetamines Screen NEG Urine Benzodiazepines Screen POS Urine Cocaine Screen NEG Urine Cannabinoids Screen NEG Band and Hold Blood Type A POSITIVE Blood Bank Comment Date/Time Procedure Status Source Growth 10/05/16 10:50 Urine Culture Received Urine Clean Catch Pending Physical Exam GENERAL: Well-nourished, well-developed patient. CARDIOVASCULAR: Regular rate and rhythm without murmurs, gallops, or rubs. RESPIRATORY: Breath sounds equal bilaterally. No accessory muscle use. ABDOMEN/GI: Abdomen soft, non-tender. FHTs EXTREMITIES: No cyanosis or edema, non-tender, without signs of DVT. Assessment and Plan Assessment and Plan hyperemesis gravidarum severe anxiety disorder should be ready for discharge in the am with medications as printed out. Dr. Hanonn has script for her oxycodone and her klonipin RTo with Dr. Hannon next week and with me in two weeks Lisette Whitney MD October 05, 2016 18:30
[2016-10-05] MEDS ORDERED: REGL10TA5 PO (18:39)
[2016-10-05] MEDS ORDERED: ZANTTAB PO (18:40)
--- NOTE | 2016-10-05 18:40 | HHI.DCPOC ---
Discharge Care Plan Report Symptoms to Your Doctor -Temperate above 100.5 degrees -Redness, of incision or excessive or foul smelling drainage -Unusual pain or calf pain -Increased vaginal bleeding -Painful or difficulty urinating -Feelings of extreme sadness or anxiety after 2 weeks Goals to Promote Your Health * To prevent worsening of your condition and complications * To maintain your health at the optimal level Directions to Meet Your Goals Take your medications as prescribed Follow your dietary instruction Follow activity as directed Ensure plenty of rest for recovery Drink fluids for hydration Keep your appointments as scheduled Take your immunizations and boosters as scheduled If your symptoms worsen call your PCP, if no PCP go to Urgent Care Center or Emergency Room Smoking is Dangerous to Your Health. Avoid second hand smoke Call the 24-hour crisis hotline for domestic abuse at Lisette Whitney MD October 05, 2016 18:40
[2016-10-05] MEDS ORDERED: SODIUM CHLORIDE 0.9% FLUSH 10 ML FLUSH IV FLUSH SCH (21:00)
[2016-10-05] MEDS: PRAZOSIN HCL 1 MG CAP PO SCH (21:35)
[2016-10-05] MEDS: METOCLOPRAMIDE HCL 10 MG TAB PO SCH (22:05)
[2016-10-05] MEDS ORDERED: clonazePAM 1 MG TAB PO ONE (22:15)
[2016-10-06 01:18] VITALS: BP 94/47; PULSE 81; RESP 18
[2016-10-06] MEDS: PROMETHAZINE HCL 25 MG TAB PO PRN (02:48)
[2016-10-06] MEDS: LACTATED RINGER'S 1000 ML INJ 1,000 ML IV SCH (03:30)
[2016-10-06 05:41] VITALS: BP 97/47; PULSE 87; RESP 16
[2016-10-06] MEDS: METOCLOPRAMIDE HCL 10 MG TAB PO SCH ×2 (07:02→10:57)
--- NOTE | 2016-10-06 08:35 | PD.OB.ANTE ---
Subjective Diagnosis: (1) Opioid use disorder, moderate, in controlled environment (2) Nausea and vomiting during prior to 22 weeks gestation (3) Hyperemesis gravidarum before end of 22 week gestation, dehydration Interval History Min spotting now. N/V improved, aaliyah po Objective Vital Signs Vital Signs Date Time Temp Pulse Resp B/P Pulse Ox O2 Delivery O2 Flow Rate FiO2 10/06/16 06:37 16 10/06/16 05:41 87 16 97/47 10/06/16 01:18 81 18 94/47 10/05/16 22:39 98.0 10/05/16 22:08 18 10/05/16 22:07 90 99/60 10/05/16 19:40 98.6 10/05/16 19:39 90 99/61 10/05/16 19:39 18 10/05/16 17:25 16 10/05/16 16:37 17 10/05/16 16:37 98.3 10/05/16 16:08 87 99/46 10/05/16 12:00 98.5 10/05/16 12:00 18 10/05/16 11:00 17 10/05/16 10:51 89 95/61 Lab & Micro Results Test 10/05/16 10/05/16 10:50 11:51 White Blood Count 7.4 TH/MM3 Red Blood Count 3.37 MIL/MM3 Hemoglobin 10.8 GM/DL Hematocrit 30.6 % Mean Corpuscular Volume 90.8 FL Mean Corpuscular Hemoglobin 32.0 PG Mean Corpuscular Hemoglobin 35.2 % Concent Red Cell Distribution Width 12.8 % Platelet Count 157 TH/MM3 Mean Platelet Volume 7.9 FL Neutrophils (%) (Auto) 77.4 % Lymphocytes (%) (Auto) 10.4 % Monocytes (%) (Auto) 11.5 % Eosinophils (%) (Auto) 0.4 % Basophils (%) (Auto) 0.3 % Neutrophils # (Auto) 5.7 TH/MM3 Lymphocytes # (Auto) 0.8 TH/MM3 Monocytes # (Auto) 0.9 TH/MM3 Eosinophils # (Auto) 0.0 TH/MM3 Basophils # (Auto) 0.0 TH/MM3 CBC Comment DIFF FINAL Differential Comment Sodium Level 139 MEQ/L Potassium Level 3.4 MEQ/L Chloride Level 105 MEQ/L Carbon Dioxide Level 23.5 MEQ/L Anion Gap 11 MEQ/L Blood Urea Nitrogen 5 MG/DL Creatinine 0.36 MG/DL Estimat Glomerular Filtration 202 ML/MIN Rate Random Glucose 99 MG/DL Calcium Level 8.6 MG/DL Total Bilirubin 0.2 MG/DL Aspartate Amino Transf 13 U/L (AST/SGOT) Alanine Aminotransferase 21 U/L (ALT/SGPT) Alkaline Phosphatase 57 U/L Total Protein 6.4 GM/DL Albumin 2.9 GM/DL Thyroid Stimulating Hormone 0.408 uIU/ML 3rd Gen Urine Opiates Screen POS Urine Barbiturates Screen NEG Urine Amphetamines Screen NEG Urine Benzodiazepines Screen POS Urine Cocaine Screen NEG Urine Cannabinoids Screen NEG Band and Hold Blood Type A POSITIVE Blood Bank Comment Date/Time Procedure Status Source Growth 10/05/16 10:50 Urine Culture Received Urine Clean Catch Pending Physical Exam GENERAL: Well-nourished, well-developed patient. CARDIOVASCULAR: Regular rate and rhythm without murmurs, gallops, or rubs. RESPIRATORY: Breath sounds equal bilaterally. No accessory muscle use. ABDOMEN/GI: Abdomen soft, non-tender. Fundus: [-] GENITOURINARY: External Genitalia: intact and normal in appearance defer Presentation: [-] Membranes:intact Uterine Contractions: neg FHT's: + FHT EXTREMITIES: No cyanosis or edema, non-tender, without signs of DVT. Assessment and Plan Assessment and Plan Assessment and Plan hyperemesis gravidarum with secondary opioid and benzo withdrawal since not holding meds- symptoms greatly improved. Tolerating po severe anxiety disorder Discharge Planning Today-home script oxycodone and her angie in chart RTo with Dr. Hannon next week with zackary in two weeks Christel Hannon MD October 06, 2016 08:35
[2016-10-06 08:44] VITALS: RESP 18; TEMP 97.9
[2016-10-06 08:45] VITALS: BP 96/51; PULSE 90
[2016-10-06] MEDS: PRAZOSIN HCL 1 MG CAP PO SCH (08:56)
[2016-10-06] MEDS: clonazePAM 1 MG TAB PO SCH (08:56)
[2016-10-06] MEDS ORDERED: DOCUSATE SODIUM 100 MG CAP PO SCH (09:00)
[2016-10-06] MEDS ORDERED: SERTRALINE HCL 50 MG TAB PO SCH ×2 (09:00)
[2016-10-09 11:09] LABS: HEROIN (6-ACETYLMORPHINE) UR NEG (NEG); OBMETHADONE UR NEG (NEG); PHENCYCLIDINE URINE NEG (NEG)
[2016-10-09 11:10] LABS: BATH SALTS (MDPV) UR NEG (NEG); ECSTASY (MDMA) UR NEG (NEG); K2 SPICE UR NEG (NEG)
[2016-10-09 11:12] LABS: GABAPENTIN UR NEG (NEG); HYDROMORPHONE U NEG (NEG); OXYCODONE (PERCODAN) POS (NEG)
== END 2016-10-06 11:46 | disposition home or self-care (01) ==
LOC: H2EA 10:18
PROVIDERS: ADMIT Obstetrics & Gynecology; ATTEND Obstetrics & Gynecology
DX: O21.0 Mild hyperemesis gravidarum (principal); O99.282 Endocrine, nutritional and metabolic diseases complicating pregnancy, second trimester; E86.0 Dehydration; O99.322 Drug use complicating pregnancy, second trimester; F13.239 Sedative, hypnotic or anxiolytic dependence with withdrawal, unspecified; O99.342 Other mental disorders complicating pregnancy, second trimester; F41.9 Anxiety disorder, unspecified; Z3A.22 22 weeks gestation of pregnancy
CPT/HCPCS: 76805; 80053; 80307; 84443; 85025; 86900; 86901; 87086; G0378; G0481; J2060; J2405; J7120; Q0169; 87077; 87186

== ENCOUNTER 2016-11-13 18:27 | Inpatient (IN) | payer MEDICAID, OTHER ==
[~2016-11-13] VITALS: Ht 165.1 cm; Wt 56.2 kg
[~2016-11-13 18:27] MED LIST changes: +REGL10TA5 PO; +ZANTTAB PO
[2016-11-13] MEDS ORDERED: SODIUM CHLORIDE 0.9% FLUSH 10 ML FLUSH IV FLUSH PRN (19:30)
[2016-11-13] MEDS: LORazepam 1 MG TAB PO SCH (19:30)
[2016-11-13] MEDS ORDERED: DIPHENOXYLATE/ATROPINE 2.5 MG/0.025 MG TAB PO ONE (19:45)
[2016-11-13] MEDS ORDERED: BUPRENORPHINE HCL 8 MG SUBLINGUAL TAB SL ONE (19:45)
--- NOTE | 2016-11-13 19:46 | PD ---
History of Present Illness Date Seen: Nov 13, 2016 Time Seen: 19:38 History of Present Illness 36 yo swf at 22 weeks EGA will opioid use disorder, annxiety, depression and withdrawal since Sunday so that she now has nausea, vomiting, diarrhea, cramping and decreased movement. Has infected site from attemped heroin dose yesterday morning. This is an optimal time to change to subutex. Will begin now. Will increase ativan and add seroquel tonight. Intermittent monitering, stool for O & P, IV hydrations and labs. will reassess in am. Lisette Whitney MD Nov 13, 2016 19:46
[2016-11-13] MEDS: LACTATED RINGER'S 1000 ML INJ 1,000 ML IV PRN ×2 (20:04→22:07)
[2016-11-13 20:30] LABS: AUTOMATED NEUTROPHIL # 11.6 TH/MM3 (1.8-7.7); BASOPHIL % 0.3 % (0.0-2.0); EOSINOPHIL % 0.1 % (0.0-4.0); HEMATOCRIT 32.3 % (35.0-46.0); HEMO FLAGS DIFF FINAL; LYMPHOCYTE # 1.9 TH/MM3 (1.0-4.8); MEAN CELL VOLUME 90.1 FL (80.0-100.0); MEAN CORPUSCULAR HEMOGLOBIN 31.3 PG (27.0-34.0); MEAN CORPUSCULAR HGB CONC 34.7 % (32.0-36.0); MONO % 6.9 % (0.0-8.0); NEUT % 79.7 % (16.0-70.0); PLATELET COUNT 304 TH/MM3 (150-450); RED BLOOD COUNT 3.58 MIL/MM3 (4.00-5.30); RED CELL DISTRIBUTION WIDTH 13.8 % (11.6-17.2); WHITE BLOOD COUNT 14.5 TH/MM3 (4.0-11.0)
[2016-11-13 20:36] LABS: AMPHETAMINE, URINE NEG (NEG); BARBITURATES, URINE NEG (NEG); COCAINE, URINE NEG (NEG)
[2016-11-13 20:45] LABS: BACTERIA, URINE RARE /hpf; BLOOD, URINE NEG (NEG); COMMENT (UR) CULT NOT INDICATED; CULTURE IF INDICATED CULT NOT INDICATED; GLUCOSE,URINE NEG (NEG); KETONE, URINE TRACE mg/dL (NEG); MUCUS URINE FEW /lpf (OCC); NITRITE,URINE NEG (NEG); PH, URINE 6.5 (5.0-8.5); SQUAMOUS EPITHELIAL CELL URINE 2 /hpf (0-5); URINE COLOR YELLOW (YELLW/STRAW)
[2016-11-13 20:53] LABS: BICARBONATE 23.6 MEQ/L (21.0-32.0); POTASSIUM 3.9 MEQ/L (3.5-5.1)
[2016-11-13 20:57] LABS: INDIRECT BILIRUBIN 0.1 MG/DL (0.0-0.8); TOTAL BILIRUBIN ADULT 0.2 MG/DL (0.2-1.0)
[2016-11-13 21:34] VITALS: BP 90/38; PULSE 81
[2016-11-13 21:35] VITALS: RESP 16
[2016-11-13 21:36] VITALS: TEMP 98
[2016-11-13 21:38] VITALS: BP 105/54; PULSE 74
[2016-11-13] MEDS: cefTRIAXone INJ 1,000 MG in SODIUM CHLORIDE 0.9% INJ 100 ML IV SCH (21:39)
[2016-11-13] MEDS: SERTRALINE HCL 100 MG TAB PO SCH (21:40)
[2016-11-13] MEDS: SODIUM CHLORIDE 0.9% FLUSH 10 ML FLUSH IV FLUSH SCH (21:40)
[2016-11-13] MEDS: QUEtiapine FUMARATE 100 MG TAB PO SCH (23:05)
[2016-11-14] VITALS (10 sets, daily range): BP systolic 78–99; BP diastolic 32–55; PULSE 69–85; RESP 16–20; TEMP 97.5–97.9
[2016-11-14] MEDS: ZOLPIDEM TARTRATE 5 MG TAB PO PRN ×2 (00:09→01:50)
[2016-11-14] MEDS: LORazepam 1 MG TAB PO SCH ×4 (00:09→18:08)
[2016-11-14] MEDS: cloNIDine HCL 0.1 MG TAB PO PRN ×4 (01:50→20:09)
--- NOTE | 2016-11-14 07:49 | PD.OB.ANTE ---
Subjective Interval History "aggrivated" Was sleeping very soundly when entered room. We woke her to discuss plan. She said it was a rough night and has muscle aches that she has never had before. No diarrhea. Some nausea. Doesn't feel right. Antepartum ROS: Reports: New complaints, Loss of fluid, Vaginal bleeding, movement normal, Contractions, Other Objective Vital Signs Vital Signs Date Time Temp Pulse Resp B/P Pulse Ox O2 Delivery O2 Flow Rate FiO2 11/14/16 05:51 97.5 83 16 93/51 11/14/16 04:00 16 11/14/16 00:08 16 11/14/16 00:07 97/47 11/14/16 00:07 84 11/14/16 00:07 84 11/14/16 00:07 97/47 11/14/16 00:07 97.8 11/13/16 21:38 74 105/54 11/13/16 21:36 98.0 11/13/16 21:35 16 11/13/16 21:34 90/38 11/13/16 21:34 81 Lab & Micro Results Test 11/13/16 11/13/16 18:40 20:08 Urine Color YELLOW Urine Turbidity CLEAR Urine pH 6.5 Urine Specific [place] 1.032 Urine Protein 30 mg/dL Urine Glucose (UA) NEG mg/dL Urine Ketones TRACE mg/dL Urine Occult Blood NEG Urine Nitrite NEG Urine Bilirubin NEG Urine Urobilinogen 2.0 MG/DL Urine Leukocyte Esterase TRACE Urine RBC 1 /hpf Urine WBC 3 /hpf Urine Squamous Epithelial 2 /hpf Cells Urine Bacteria RARE /hpf Urine Mucus FEW /lpf Microscopic Urinalysis Comment CULT NOT INDICATED Urine Opiates Screen POS Urine Barbiturates Screen NEG Urine Amphetamines Screen NEG Urine Benzodiazepines Screen POS Urine Cocaine Screen NEG Urine Cannabinoids Screen NEG White Blood Count 14.5 TH/MM3 Red Blood Count 3.58 MIL/MM3 Hemoglobin 11.2 GM/DL Hematocrit 32.3 % Mean Corpuscular Volume 90.1 FL Mean Corpuscular Hemoglobin 31.3 PG Mean Corpuscular Hemoglobin 34.7 % Concent Red Cell Distribution Width 13.8 % Platelet Count 304 TH/MM3 Mean Platelet Volume 7.9 FL Neutrophils (%) (Auto) 79.7 % Lymphocytes (%) (Auto) 13.0 % Monocytes (%) (Auto) 6.9 % Eosinophils (%) (Auto) 0.1 % Basophils (%) (Auto) 0.3 % Neutrophils # (Auto) 11.6 TH/MM3 Lymphocytes # (Auto) 1.9 TH/MM3 Monocytes # (Auto) 1.0 TH/MM3 Eosinophils # (Auto) 0.0 TH/MM3 Basophils # (Auto) 0.0 TH/MM3 CBC Comment DIFF FINAL Differential Comment Sodium Level 137 MEQ/L Potassium Level 3.9 MEQ/L Chloride Level 103 MEQ/L Carbon Dioxide Level 23.6 MEQ/L Anion Gap 10 MEQ/L Blood Urea Nitrogen 6 MG/DL Creatinine 0.50 MG/DL Estimat Glomerular Filtration 138 ML/MIN Rate Random Glucose 99 MG/DL Calcium Level 8.9 MG/DL Total Bilirubin 0.2 MG/DL Direct Bilirubin 0.1 MG/DL Indirect Bilirubin 0.1 MG/DL Aspartate Amino Transf 11 U/L (AST/SGOT) Alanine Aminotransferase 14 U/L (ALT/SGPT) Alkaline Phosphatase 74 U/L Total Protein 7.2 GM/DL Albumin 3.0 GM/DL Physical Exam GENERAL: Well-nourished, well-developed patient. CARDIOVASCULAR: Regular rate and rhythm without murmurs, gallops, or rubs. RESPIRATORY: Breath sounds equal bilaterally. No accessory muscle use. ABDOMEN/GI: Abdomen soft, non-tender. fundus U +2 FHT 140 EXTREMITIES: No cyanosis or edema, non-tender, without signs of DVT. Assessment and Plan Assessment and Plan add gabapentin for muscle aches. Consider Physician certificate if wants to leave this is an optimal time for transition to bupreinoprhine and she is doing very well although she does not think so. Needs 24-48 hours to confirm that she will not need pure agonists Lisette Whitney MD Nov 14, 2016 07:49
[2016-11-14] MEDS: BUPRENORPHINE HCL 8 MG SUBLINGUAL TAB SL SCH ×3 (08:00→20:26)
[2016-11-14] MEDS: SERTRALINE HCL 100 MG TAB PO SCH (08:12)
[2016-11-14] MEDS: GABAPENTIN 300 MG CAP PO SCH ×3 (08:12→18:08)
[2016-11-14] MEDS: SODIUM CHLORIDE 0.9% FLUSH 10 ML FLUSH IV FLUSH SCH ×2 (09:00→22:10)
[2016-11-14] MEDS ORDERED: BUPRENORPHINE HCL 8 MG SUBLINGUAL TAB SL SCH (09:00)
[2016-11-14] MEDS ORDERED: ONDANSETRON INJ 8 MG in DEXTROSE 5% IN WATER INJ 50 ML IV PRN ×2 (12:00)
[2016-11-14] MEDS: NICOTINE 21 MG/24 HR PATCH T-DERMAL SCH (12:05)
[2016-11-14] MEDS: LACTATED RINGER'S 1000 ML INJ 1,000 ML IV PRN (12:10)
[2016-11-14] MEDS ORDERED: SODIUM CHLORIDE 0.9% FLUSH 10 ML FLUSH IV FLUSH PRN ×2 (12:30→20:00)
[2016-11-14] MEDS ORDERED: DIPHTH/TETANUS/ACEL PERTUSSIS (BOOSTER) 0.5 ML VIAL/PFS IM ONE (16:00)
[2016-11-14] MEDS ORDERED: MEASLES, MUMPS, RUBELLA VACCINE 0.5 ML VIAL SQ ONE (16:00)
[2016-11-14] MEDS: cefTRIAXone INJ 1,000 MG in SODIUM CHLORIDE 0.9% INJ 100 ML IV SCH (19:26)
[2016-11-14] MEDS ORDERED: ONDANSETRON ODT 4 MG TAB PO PRN (20:00)
[2016-11-14] MEDS ORDERED: WITCH HAZEL 50%/GLYCERIN 12.5% 40 PAD JAR TOPICAL PRN (20:00)
[2016-11-14] MEDS ORDERED: ACETAMINOPHEN 325 MG TAB PO PRN (20:00)
[2016-11-14] MEDS ORDERED: BENZOCAINE 20% TOPICAL SPRAY 60 ML CAN TOPICAL PRN (20:00)
[2016-11-14] MEDS ORDERED: ZOLPIDEM TARTRATE 5 MG TAB PO PRN (20:00)
[2016-11-14] MEDS ORDERED: ALUMINUM/MAGNESIUM/SIMETH 30 ML CUP PO PRN (20:00)
[2016-11-14] MEDS ORDERED: IBUPROFEN 600 MG TAB PO PRN (20:00)
[2016-11-14] MEDS ORDERED: DOCUSATE SODIUM 50 MG/SENNA 8.6 MG TAB PO PRN (20:00)
[2016-11-14] MEDS: QUEtiapine FUMARATE 100 MG TAB PO SCH (20:09)
[2016-11-14] MEDS ORDERED: REMOVE OLD NICODERM (NICOTINE) PATCH T-DERMAL SCH (21:00)
[2016-11-14] MEDS ORDERED: SODIUM CHLORIDE 0.9% FLUSH 10 ML FLUSH IV FLUSH SCH (21:00)
[2016-11-15] VITALS (14 sets, daily range): BP systolic 92–101; BP diastolic 46–59; PULSE 66–79; RESP 18–20; TEMP 97.8–98.7
[2016-11-15] MEDS: LORazepam 1 MG TAB PO SCH ×5 (00:36→23:59)
[2016-11-15] MEDS: LACTATED RINGER'S 1000 ML INJ 1,000 ML IV PRN (00:37)
[2016-11-15] MEDS: ZOLPIDEM TARTRATE 5 MG TAB PO PRN (00:44)
[2016-11-15] MEDS: SODIUM CHLORIDE 0.9% FLUSH 10 ML FLUSH IV FLUSH SCH ×2 (08:00→20:14)
[2016-11-15] MEDS: BUPRENORPHINE HCL 8 MG SUBLINGUAL TAB SL SCH ×3 (08:02→20:38)
[2016-11-15] MEDS: GABAPENTIN 300 MG CAP PO SCH ×3 (09:55→18:32)
[2016-11-15] MEDS: NICOTINE 21 MG/24 HR PATCH T-DERMAL SCH (09:55)
[2016-11-15] MEDS: SERTRALINE HCL 100 MG TAB PO SCH (09:55)
[2016-11-15] MEDS: cloNIDine HCL 0.1 MG TAB PO PRN ×2 (11:34→18:38)
--- NOTE | 2016-11-15 12:06 | PD.PN.STU ---
Subjective Remarks 36 yo swf at 22 weeks with hx of opioid use, anxiety, depression, and withdrawal symptoms here on hospitalization day 2. Extremely tearful and anxious. Does not feel that medications are working. Unable to evaluate withdrawal symptoms due to anxiety. Sleep disturbances. Does not feel she is ready to leave as she will resort to self-medicating her anxiety which causes her distress. Objective Vitals Vital Signs Date Time Temp Pulse Resp B/P Pulse Ox O2 Delivery O2 Flow Rate FiO2 11/15/16 11:27 79 101/55 11/15/16 11:26 20 11/15/16 11:26 92/47 11/15/16 11:26 73 11/15/16 08:00 97.8 20 11/15/16 07:58 74 97/54 11/15/16 00:35 97.8 68 92/46 11/14/16 19:24 18 11/14/16 19:23 97.9 11/14/16 19:23 69 88/47 11/14/16 18:11 84 90/55 11/14/16 12:11 69 78/32 11/14/16 12:10 20 Result Diagram: 11/13/16200711/13/162007 Objective Remarks Mood: Anxious, tearful Affect: Labile, congruent Cardiovascular: RRR, no murmurs, rubs, gallops. No cyanosis. Pulmonary: CTAB Abdomen: Non-tender to palpation, no extrauterine masses. Gravid uterus consistent with 22 weeks. Extremities: No signs of edema. Well perfused. A/P Assessment and Plan Impression: 36 yo swf at 22 weeks on hospital day 2, currently medically stable but with severe anxiety. Problems: 1. Anxiety 2. Hx of opioid use 3. Leukocytosis 3. Depression 4. Substance use in 5. Sleep disturbances Plan: Continue monitoring. Medication review. Continue monitoring. Patient would likely decompensate if placed in lower level of care. Additional plans and discharge to be determined by Dr. Whitney. Discharge Planning To be determined by Dr. Whitney. Juanis Lo Nov 15, 2016 12:06 Lisette Whitney MD Nov 16, 2016 07:37
[2016-11-15] MEDS: cefTRIAXone INJ 1,000 MG in SODIUM CHLORIDE 0.9% INJ 100 ML IV SCH (20:10)
[2016-11-15] MEDS: QUEtiapine FUMARATE 100 MG TAB PO SCH (20:38)
[2016-11-16] MEDS: LORazepam 1 MG TAB PO SCH (06:02)
[2016-11-16 06:04] VITALS: BP 90/50; PULSE 69
--- NOTE | 2016-11-16 07:44 | PD.OB.ANTE ---
Subjective Interval History 22 1/2 week IUP with years long methadone maintenance. Met at 12 weeks when already at 170 mg daily, nodding off and had lost job and ability to afford methadone. was returning to IV heroin at that. Signed contracts, treatment plans and agreed to weekly UDS. Transitions to oxycodone with other supportive medications until this week. Now transitioned to subutex 8 bid. Clinically signs all suggest no physical withdrawal at this time (this admission was initiated by a complicating severe gastroenteritis which has since resolved) Emotionally she still states severe anxiety (tho pulse and BP quite low and sleeping soundly in night) Feels she is not right on the subutex and her anxiety is putting her at risk of seeking out IV opioids. She is on a remarkable list of anti anxiety meds to reduce risk of anxiety provoked illicit use. She is physically ready for discharge but must have close and intensive outpatient 2 steps and counseling to avoid relapse. Clinically no signs of infection. surveillance reassuring. will contact [facility] to begin intensive outpatient management. At risk of losing both children if does relapse. will see her weekly. Objective Vital Signs Vital Signs Date Time Temp Pulse Resp B/P Pulse Ox O2 Delivery O2 Flow Rate FiO2 11/16/16 06:04 69 90/50 11/15/16 23:58 18 11/15/16 23:56 66 98/53 11/15/16 23:56 98.4 11/15/16 20:17 97.8 20 11/15/16 20:15 70 101/59 11/15/16 15:46 20 11/15/16 15:45 75 95/50 11/15/16 15:45 97.9 11/15/16 12:41 97.8 11/15/16 12:41 98.7 11/15/16 12:40 20 11/15/16 12:38 67 99/54 11/15/16 11:27 79 101/55 11/15/16 11:26 20 11/15/16 11:26 92/47 11/15/16 11:26 73 11/15/16 08:00 97.8 20 11/15/16 07:58 74 97/54 Physical Exam GENERAL: Well-nourished, well-developed patient. CARDIOVASCULAR: Regular rate and rhythm without murmurs, gallops, or rubs. RESPIRATORY: Breath sounds equal bilaterally. No accessory muscle use. ABDOMEN/GI: Abdomen soft, non-tender. Fundus: [-] GENITOURINARY: External Genitalia: intact and normal in appearance Cervix: [-] Dilatation: [-] Effacement: [-] Station: [-] Presentation: [-] Membranes: [-] Uterine Contractions: [-] FHT's: Category: [-] Baseline: [-] Reactive: [-] Variability: [-] Decels: [-] EXTREMITIES: No cyanosis or edema, non-tender, without signs of DVT. Assessment and Plan Assessment and Plan add gabapentin for muscle aches. Consider Physician certificate if wants to leave this is an optimal time for transition to bupreinoprhine and she is doing very well although she does not think so. Needs 24-48 hours to confirm that she will not need pure agonists Lisette Whitney MD Nov 16, 2016 07:44
[2016-11-16] MEDS: cloNIDine HCL 0.1 MG TAB PO PRN (07:52)
[2016-11-16] MEDS: BUPRENORPHINE HCL 8 MG SUBLINGUAL TAB SL SCH (07:52)
[2016-11-16 07:55] VITALS: BP 104/43; PULSE 75
[2016-11-16 07:57] VITALS: RESP 20; TEMP 98.8
[2016-11-16] MEDS: NICOTINE 21 MG/24 HR PATCH T-DERMAL SCH (09:09)
[2016-11-16] MEDS: GABAPENTIN 300 MG CAP PO SCH (09:09)
[2016-11-16] MEDS: SERTRALINE HCL 100 MG TAB PO SCH (09:09)
--- NOTE | 2016-11-16 09:26 | PD.OB.ANTE ---
Subjective Interval History despite no physical signs to support withdrawal or anxiety, Yumiko is adamant that if her overwhelming anxiety is not better addressed she will leave and use immediately. She not longer meets criteria for inpatient. I do not think she is physically withdrawing from anything, but she has herself convinced she must have either a long acting benzao in addition to subutex or she will use. We have discussed that she has more autonomy than this and she can make the correct choices. Iti s not in our control and we cannot medicate into stupor to avoid addictive behavior. I will give TID klonopin initially to see if home on subutex and klonopin might be successful. she wiol have weelkly intervention. n She will be discharged today. Objective Vital Signs Vital Signs Date Time Temp Pulse Resp B/P Pulse Ox O2 Delivery O2 Flow Rate FiO2 11/16/16 07:57 98.8 20 11/16/16 07:55 75 104/43 11/16/16 06:04 69 90/50 11/15/16 23:58 18 11/15/16 23:56 66 98/53 11/15/16 23:56 98.4 11/15/16 20:17 97.8 20 11/15/16 20:15 70 101/59 11/15/16 15:46 20 11/15/16 15:45 75 95/50 11/15/16 15:45 97.9 11/15/16 12:41 97.8 11/15/16 12:41 98.7 11/15/16 12:40 20 11/15/16 12:38 67 99/54 11/15/16 11:27 79 101/55 11/15/16 11:26 20 11/15/16 11:26 92/47 11/15/16 11:26 73 Physical Exam GENERAL: Well-nourished, well-developed patient. CARDIOVASCULAR: Regular rate and rhythm without murmurs, gallops, or rubs. RESPIRATORY: Breath sounds equal bilaterally. No accessory muscle use. ABDOMEN/GI: Abdomen soft, non-tender. Fundus: [-] GENITOURINARY: External Genitalia: intact and normal in appearance Cervix: [-] Dilatation: [-] Effacement: [-] Station: [-] Presentation: [-] Membranes: [-] Uterine Contractions: [-] FHT's: Category: [-] Baseline: [-] Reactive: [-] Variability: [-] Decels: [-] EXTREMITIES: No cyanosis or edema, non-tender, without signs of DVT. Assessment and Plan Assessment and Plan add gabapentin for muscle aches. Consider Physician certificate if wants to leave this is an optimal time for transition to bupreinoprhine and she is doing very well although she does not think so. Needs 24-48 hours to confirm that she will not need pure agonists Lisette Whitney MD Nov 16, 2016 09:26
[2016-11-16] MEDS ORDERED: BUPR8SUB SL (09:32)
[2016-11-16] MEDS ORDERED: CLON1 PO (09:32)
--- NOTE | 2016-11-16 09:32 | HHI.DCPOC ---
Discharge Care Plan Report Symptoms to Your Doctor -Temperature above 100.5 degrees -Redness, of incision or excessive or foul smelling drainage -Unusual pain or calf pain -Increased vaginal bleeding -Painful or difficulty urinating -Feelings of extreme sadness or anxiety after 2 weeks Goals to Promote Your Health * To prevent worsening of your condition and complications * To maintain your health at the optimal level Directions to Meet Your Goals Take your medications as prescribed Follow your dietary instruction Follow activity as directed Ensure plenty of rest for recovery Drink fluids for hydration Keep your appointments as scheduled Take your immunizations and boosters as scheduled If your symptoms worsen call your PCP, if no PCP go to Urgent Care Center or Emergency Room Smoking is Dangerous to Your Health. Avoid second hand smoke Call the 24-hour crisis hotline for domestic abuse at Lisette Whitney MD Nov 16, 2016 09:32
[2016-11-16] MEDS ORDERED: clonazePAM 1 MG TAB PO SCH ×2 (10:15→14:00)
== END 2016-11-16 12:20 | disposition home or self-care (01) | DRG 781 ==
LOC: HOBED 18:27 → H2EA 20:00 → OBSVTOIN 11-14 12:25
PROVIDERS: ADMIT Obstetrics & Gynecology; ATTEND Obstetrics & Gynecology
DX: O99.612 Diseases of the digestive system complicating pregnancy, second trimester (principal); F32.9 Major depressive disorder, single episode, unspecified; K52.9 Noninfective gastroenteritis and colitis, unspecified; F41.9 Anxiety disorder, unspecified; O99.342 Other mental disorders complicating pregnancy, second trimester; Z3A.22 22 weeks gestation of pregnancy; O36.8120 Decreased fetal movements, second trimester, not applicable or unspecified; O99.322 Drug use complicating pregnancy, second trimester; F11.90 Opioid use, unspecified, uncomplicated
CPT/HCPCS: 76816; 76817; 80048; 80076; 80307; 81001; 85025; 99285; G0481; J0696; J2405; J7120

== ENCOUNTER 2016-12-28 16:43 | Observation (INO) | payer MEDICAID ==
[~2016-12-28] VITALS: Ht 165.1 cm; Wt 58.1 kg
[~2016-12-28 16:43] MED LIST changes: +BUPR8SUB SL; -CLON.5 PO; +CLON1 PO; -OXYC-395 PO; -PRAZ1 PO
--- NOTE | 2016-12-28 17:51 | PD ---
HPI Chief Complaint Chills Date Seen: Dec 28, 2016 Time Seen: 17:00 Travel History International Travel<30 Days: No Contact w/Intl Traveler<30Days: No Known Affected Area: No History of Present Illness HPI Patient is a 36-year-old at 20 weeks and 3 days who presents with 1 day of chills. She reports that her chill started this morning at about 10 AM. She took her medications normally and 9 AM. She was unable to take her afternoon dose of medications. She reports that she felt like she was freezing despite having layers of clothing, blankets, warm weather. She also reports hyperventilation and feeling like she couldn't catch her breath. She denies any subjective fever. She reports a little dysuria but no burning with urination. She denies any cough, runny nose, sore throat, abdominal pain, nausea, vomiting , diarrhea, skin lesions. She denies any contractions, vaginal burning, leakage of fluid. She reports movement. Para: 1 : 4 History Past Medical History Narrative Medical Patient reports a history of anxiety, bipolar affective disorder, depression, PTSD, UTIs, pyelonephritis Obstetric History Obstetric History Patient reports a history of a an elective for Alegre syndrome, miscarriage, a full-term delivery while on methadone of a 5 lbs. 1 oz. 21 inch girl born on [birth year] Past Surgical History Narrative Surgical Breast implant Family History Narrative Family History Sister and grandmother with diabetes Social History Narrative Social History Patient lives at home with her mother, father, daughter. Alcohol Use: No Tobacco Use: Yes (half a pack per day) Substance Abuse: No Allergies-Medications (Allergen,Severity, Reaction): Coded Allergies: No Known Allergies (Verified , 10/05/16) Home Meds Active Scripts Clonazepam (Klonopin)1 Mg Tab1 Mg PO Q8HR #21 TAB Prov:Lisette Whitney MD 11/16/16 Buprenorphine 8 Mg Subl8 Mg SL DAILY@08,,20 #14 TAB Prov:Lisette Whitney MD 11/16/16 Ranitidine (Zantac 150 Maximum Strength)150 Mg [id number] Mg PO BID #60 TAB Prov:Lisette Whitney MD 10/05/16 Metoclopramide (Reglan)10 Mg Tab10 Mg PO TIDAC #30 TAB Ref 0 Prov:Lisette Whitney MD 10/05/16 Hydroxyzine Pamoate 25 Mg Cap25 Mg PO Q6H PRN (SKIN CRAWLING) #90 CAP Prov:Lisette Whitney MD 09/27/16 Gabapentin (Neurontin)300 Mg [id number] Mg PO TID #21 CAP Prov:Lisette Whitney MD 09/27/16 Promethazine (Phenergan)25 Mg Tab25 Mg PO Q6H PRN (nausea and vomiting) #20 TAB Prov:Lisette Whitney MD 09/27/16 Sertraline (Zoloft)50 Mg Tab50 Mg PO DAILY #90 TAB Prov:Lisette Whitney MD 09/27/16 Narrative Medication vitamin. Review of Systems General / Constitutional: Chills, No: Fever, Weight Gain, Other Eyes: No: Diploplia, Blurred Vision, Visual changes, Pain, Photophobia HENT: No: Headaches, Vertigo, Lightheadedness Cardiovascular: No: Irregular Rhythm, Chest Pain or Discomfort, Palpitations, Tachycardia, Syncope, Varicosities, Edema, Cyanosis Respiratory: Short of Breath, No: Cough Gastrointestinal: No: Nausea, Vomiting, Diarrhea, Abdominal Pain Genitourinary: Dysuria (patient reports a little bit of pain with urination but no burning with urination), No: Decreased Urinary Output, Oliguria Musculoskeletal: No: Limited ROM, Weakness, Cramping, Edema, Pain Skin: No Rash, No Itching, No Dryness, No Lumps, No Change in Pigmentation, No Change in Nails, No Alopecia, No Lesions Neurologic: No: Headache Psychiatric: Anxiety Physical Exam 9650, 98-101, 20, 101.8, pain 5/10 Narrative GENERAL: Well-nourished, well-developed diaphoretic patient. SKIN: Warm and clammy. HEAD: Normocephalic and atraumatic. EYES: No scleral icterus. No injection or drainage. ENT: No nasal drainage noted. Mucous membranes pink. Airway patent. NECK: Supple, trachea midline. No JVD. CARDIOVASCULAR: Regular rate and rhythm with ii/vi systolic murmur, but no gallops or rubs. RESPIRATORY: Coarse breath sounds equal bilaterally. No accessory muscle use. ABDOMEN/GI: Abdomen soft, mildly tender diffusely, bowel sounds present, no rebound, no guarding Gravid to 28 weeks size GENITOURINARY: External Genitalia: intact and normal in appearance Cervix: Posterior Dilatation: Closed Effacement: Thick Station: Long Membranes: [intact ] Uterine Contractions: none FHT's: Category: Cat II Baseline: 160 Reactive: reactive Variability: moderate Decels: none EXTREMITIES: No cyanosis or edema. BACK: Nontender without obvious deformity. mild CVA tenderness. NEUROLOGICAL: Awake and alert. Motor and sensory grossly within normal limits. Five out of 5 muscle strength in all muscle groups. Normal speech. Data Data Vital Signs Reviewed: Yes MDM Plan Patient is a 36-year-old at 20 weeks and 3 days who presents with 1 day of chills. Patient reports mild dysuria, mild CVA tenderness, mild abdominal tenderness. Patient febrile to 101.8F. Coarse breath sounds on exam. Systolic murmur on exam. Urine dipstick negative for leukocyte esterase and nitrates. 1. Fever of unknown origin: Differential diagnosis includes endocarditis, UTI, pyelonephritis, pneumonia, chorioamnionitis Placed in observation Ampicillin and gentamicin to cover most causative organisms CBC, CMP, UA, blood culture LR IV Tylenol Monitor vital signs, labor status, heart rate Consider echocardiogram 2. History of substance abuse UDS Pt s/d/w Dr. Mas who d/w Dr. Whitney. Diagnosis Diagnosis: Primary Impression: Fever of unknown origin (FUO) Additional Impression: Chills with fever Corey Stafford MD R2 Dec 28, 2016 17:51
[2016-12-28] MEDS ORDERED: ACETAMINOPHEN 325 MG TAB PO ONE (18:00)
[2016-12-28 18:07] VITALS: BP 99/51; PULSE 91
[2016-12-28 18:30] VITALS: TEMP 99
[2016-12-28 18:38] LABS: BACTERIA, URINE OCC /hpf; BLOOD, URINE NEG (NEG); COMMENT (UR) CULT NOT INDICATED; CULTURE IF INDICATED CULT NOT INDICATED; GLUCOSE,URINE NEG (NEG); KETONE, URINE NEG (NEG); MUCUS URINE FEW /lpf (OCC); NITRITE,URINE NEG (NEG); PH, URINE 5.5 (5.0-8.5); SQUAMOUS EPITHELIAL CELL URINE 1 /hpf (0-5); URINE COLOR YELLOW (YELLW/STRAW)
[2016-12-28] MEDS: LACTATED RINGER'S 1000 ML INJ 1,000 ML IV SCH (19:01)
[2016-12-28] MEDS ORDERED: LURASIDONE 40 MG TAB PO ONE (19:45)
[2016-12-28 19:56] LABS: MEAN CELL VOLUME 92.5 FL (80.0-100.0); MEAN CORPUSCULAR HEMOGLOBIN 31.7 PG (27.0-34.0); MEAN CORPUSCULAR HGB CONC 34.3 % (32.0-36.0); PLATELET COUNT 158 TH/MM3 (150-450); RED BLOOD COUNT 3.46 MIL/MM3 (4.00-5.30); RED CELL DISTRIBUTION WIDTH 13.6 % (11.6-17.2); REVIEW FLAG FINAL; WHITE BLOOD COUNT 14.7 TH/MM3 (4.0-11.0)
[2016-12-28 20:18] LABS: ALKALINE PHOSPHATASE 83 U/L (45-117); ALT (GPT) 10 U/L (10-53); ANION GAP 9 MEQ/L (5-15); AST (GOT) 11 U/L (15-37); BICARBONATE 20.6 MEQ/L (21.0-32.0); BLOOD UREA NITROGEN 5 MG/DL (7-18); CHLORIDE 101 MEQ/L (98-107); GLOMERULAR FILTRATION RATE 156 ML/MIN (>89); SODIUM (NA) 131 MEQ/L (136-145); TOTAL BILIRUBIN ADULT 0.3 MG/DL (0.2-1.0)
[2016-12-28 20:22] LABS: POTASSIUM 2.9 MEQ/L (3.5-5.1)
[2016-12-28] MEDS: SERTRALINE HCL 50 MG TAB PO SCH (20:24)
[2016-12-28] MEDS: NICOTINE 21 MG/24 HR PATCH T-DERMAL SCH (20:25)
[2016-12-28] MEDS: AMPICILLIN INJ 2,000 MG in SODIUM CHLORIDE 0.9% INJ 100 ML IV SCH ×2 (20:26→22:53)
[2016-12-28 20:30] VITALS: BP 94/52; PULSE 89
[2016-12-28 20:32] VITALS: RESP 18
[2016-12-28] MEDS ORDERED: BUPRENORPHINE HCL 8 MG SUBLINGUAL TAB SL ONE (21:15)
[2016-12-28] MEDS: POTASSIUM CHLORIDE INJ 40 MEQ in LACTATED RINGER'S 1000 ML INJ 1,000 ML IV SCH (21:37)
[2016-12-28] MEDS: GENTAMICIN 80 MG PREMIX 100 ML IV SCH (21:37)
[2016-12-28] MEDS: clonazePAM 0.5 MG TAB PO SCH (21:38)
[2016-12-28 21:43] VITALS: TEMP 98.1
[2016-12-29] VITALS (16 sets, daily range): BP systolic 85–108; BP diastolic 46–54; PULSE 72–78; RESP 17–18; TEMP 97.5–98.4; O2SAT 100
[2016-12-29] MEDS: LACTATED RINGER'S 1000 ML INJ 1,000 ML IV SCH ×3 (01:35→15:40)
[2016-12-29] MEDS: AMPICILLIN 2 GM/NS 100 ML IV SCH ×8 (02:19→21:34)
[2016-12-29] MEDS: GENTAMICIN 80 MG PREMIX 100 ML IV SCH ×3 (04:54→21:32)
[2016-12-29] MEDS: clonazePAM 0.5 MG TAB PO SCH ×2 (06:25→06:33)
[2016-12-29] MEDS: SERTRALINE HCL 100 MG TAB PO SCH (06:25)
--- NOTE | 2016-12-29 07:11 | HHI.HP ---
HPI Chief Complaint severe chills, high fever, malaise of acute onset 29 weeks substance use disorder on MAT depression, anxiety and PTSD on medication Date Seen: Dec 28, 2016 Time Seen: 18:00 Travel History International Travel<30 Days: No Contact w/Intl Traveler<30Days: No Known Affected Area: No History of Present Illness HPI 36 yo P1 at 29 weeks to J CARLOS with symptoms as above. Hurts when urinates. Chest pain and SOB. No contractions, leaking, bleeding. GFM. Hx of IVDA and very high dose methadone earlier in . Now on subutex 8 TID, latuda, zoloft and unfortunately some klonipin. Has been fairly stable. These symptoms just started. Allergies-Medications (Allergen,Severity, Reaction): Coded Allergies: No Known Allergies (Verified , 12/28/16) Home Meds Active Scripts Clonazepam (Klonopin)1 Mg Tab1 Mg PO Q8HR #21 TAB Prov:Lisette Whitney MD 11/16/16 Buprenorphine 8 Mg Subl8 Mg SL DAILY@08,,20 #14 TAB Prov:Lisette Whitney MD 11/16/16 Ranitidine (Zantac 150 Maximum Strength)150 Mg [id number] Mg PO BID #60 TAB Prov:Lisette Whitney MD 10/05/16 Metoclopramide (Reglan)10 Mg Tab10 Mg PO TIDAC #30 TAB Ref 0 Prov:Lisette Whitney MD 10/05/16 Hydroxyzine Pamoate 25 Mg Cap25 Mg PO Q6H PRN (SKIN CRAWLING) #90 CAP Prov:Lisette Whitney MD 09/27/16 Gabapentin (Neurontin)300 Mg [id number] Mg PO TID #21 CAP Prov:Lisette Whitney MD 09/27/16 Promethazine (Phenergan)25 Mg Tab25 Mg PO Q6H PRN (nausea and vomiting) #20 TAB Prov:Lisette Whitney MD 09/27/16 Sertraline (Zoloft)50 Mg Tab50 Mg PO DAILY #90 TAB Prov:Lisette Whitney MD 09/27/16 Physical Exam Vital Signs Date Time Temp Pulse Resp B/P Pulse Ox O2 Delivery O2 Flow Rate FiO2 12/29/16 04:54 72 108/53 12/29/16 04:54 97.5 18 12/29/16 00:47 75 96/52 12/29/16 00:46 97.9 18 12/28/16 21:43 98.1 12/28/16 20:32 18 12/28/16 20:30 89 94/52 12/28/16 18:30 99.0 12/28/16 18:07 91 99/51 Narrative GENERAL: Ill appearing, Well-nourished, well-developed patient. SKIN: Warm and dry. was diaphoretic earlier HEAD: Normocephalic and atraumatic. EYES: No scleral icterus. No injection or drainage. ENT: No nasal drainage noted. Mucous membranes pink. Airway patent. NECK: Supple, trachea midline. No JVD. CARDIOVASCULAR: Regular rate and rhythm 2/6 KEYANA hopefully physiologic RESPIRATORY: Breath sounds equal bilaterally. No accessory muscle use. ABDOMEN/GI: Abdomen soft, non-tender, bowel sounds present, no rebound, no guarding 30 FH recent sono in our office reassuring GENITOURINARY: no cvat strip reassuring EXTREMITIES: No cyanosis or edema. question of a fresh track on forearm? BACK: Nontender without obvious deformity. No CVA tenderness. NEUROLOGICAL: Awake and alert. Motor and sensory grossly within normal limits. Five out of 5 muscle strength in all muscle groups. Normal speech. Data Data Orders Ob (2e) Additional Admit Info (12/28/16 17:36) Vital Signs (Adult) .ON ADMISSION (12/28/16 17:35) ^ Labor Status (12/28/16 17:35) Urinalysis - C+S If Indicated (12/28/16 17:35) ^ Non Stress Test (12/28/16 17:35) ^ Hydration (12/28/16 17:35) Cbc No Diff, Includes Plts (12/28/16 17:35) Comprehensive Metabolic Panel (12/28/16 17:35) Lactated Ringer's 1000 Ml Inj (Lr 1000 M (12/28/16 17:35) Acetaminophen (Tylenol) (12/28/16 18:00) Gentamicin 80 Mg Premix (Gentamicin 80 M (12/28/16 20:00) Ampicillin Inj (Ampicillin Inj) (12/28/16 18:00) Place In Observation (8/10/17 ) Ob/Psych Drug Screen, Urine (12/28/16 17:50) Specimen To Be Collected PRN (12/28/16 17:50) Blood Culture (12/28/16 18:28) Buprenorphine (Buprenorphine) (12/29/16 09:00) Lurasidone (Latuda) (12/28/16 19:45) Sertraline (Zoloft) (12/29/16 07:00) Sertraline (Zoloft) (12/28/16 21:00) Clonazepam (Klonopin) (12/28/16 22:00) Case Management Consult (12/28/16 ) Consult Cardiology (12/28/16 ) Nicotine 21 Mg Patch.24 Hr (Habitrol 21 (12/28/16 20:00) Hepatitis C Rna Quantitative (12/28/16 19:47) Ur Bath Salts (12/28/16 17:15) Ur Heroin (12/28/16 17:15) Ur K2 Spice (12/28/16 17:15) Ur Ecstasy (12/28/16 17:15) Phencyclidine Urine (Pcp) (12/28/16 17:15) (Hub Use Only)Inp Phy Cons/Ref (12/28/16 ) Ampicillin Inj (Ampicillin Inj) (12/29/16 02:00) Lactated Ringer's 1... W/Potassium Chlor (12/28/16 22:00) Buprenorphine (Buprenorphine) (12/28/16 21:15) Labs Laboratory Tests Test 12/28/16 12/28/16 17:15 18:45 Urine Color YELLOW Urine Turbidity CLEAR Urine pH 5.5 Urine Specific [place] 1.020 Urine Protein NEG Urine Glucose (UA) NEG Urine Ketones NEG Urine Occult Blood NEG Urine Nitrite NEG Urine Bilirubin NEG Urine Urobilinogen LESS THAN 2.0 Urine Leukocyte Esterase NEG Urine RBC LESS THAN 1 Urine WBC 2 Urine Squamous Epithelial 1 Cells Urine Bacteria OCC Urine Mucus FEW Microscopic Urinalysis Comment CULT NOT INDICATED Urine Opiates Screen NEG Urine Barbiturates Screen NEG Urine Amphetamines Screen NEG Urine Benzodiazepines Screen POS Urine Cocaine Screen NEG Urine Cannabinoids Screen NEG White Blood Count 14.7 Red Blood Count 3.46 Hemoglobin 11.0 Hematocrit 32.0 Mean Corpuscular Volume 92.5 Mean Corpuscular Hemoglobin 31.7 Mean Corpuscular Hemoglobin 34.3 Concent Red Cell Distribution Width 13.6 Platelet Count 158 Mean Platelet Volume 8.9 Sodium Level 131 Potassium Level 2.9 Chloride Level 101 Carbon Dioxide Level 20.6 Anion Gap 9 Blood Urea Nitrogen 5 Creatinine 0.45 Estimat Glomerular Filtration 156 Rate Random Glucose 107 Calcium Level 8.1 Total Bilirubin 0.3 Aspartate Amino Transf 11 (AST/SGOT) Alanine Aminotransferase 10 (ALT/SGPT) Alkaline Phosphatase 83 Total Protein 6.6 Albumin 2.6 Date/Time Procedure Status Source Growth 12/28/16 21:40 Aerobic Blood Culture Received Blood Peripheral Pending 12/28/16 21:40 Anaerobic Blood Culture Received Blood Peripheral Pending Assessment/Plan Problem List: (1) Opioid use disorder, moderate, in controlled environment (2) Chills with fever (3) Fever of unknown origin (FUO) Assessment and Plan early third trimester JIGNA acutely ill- with negative urine must rule out sepsis, ANTONIA assess for use/relapse Lisette Whitney MD Dec 29, 2016 07:11
[2016-12-29] MEDS: POTASSIUM CHLORIDE INJ 40 MEQ in LACTATED RINGER'S 1000 ML INJ 1,000 ML IV SCH ×3 (08:12→18:23)
[2016-12-29] MEDS: BUPRENORPHINE HCL 8 MG SUBLINGUAL TAB SL SCH ×3 (08:12→18:08)
[2016-12-29] MEDS: NICOTINE 21 MG/24 HR PATCH T-DERMAL SCH (08:13)
--- NOTE | 2016-12-29 08:29 | PD.OB.ANTE ---
Subjective Diagnosis: (1) Opioid use disorder, moderate, in controlled environment (2) Chills with fever (3) Fever of unknown origin (FUO) Interval History Afebrile through night reviewed issues of severe overwhelming anxiety and running out of klonipin regularly. Did not tolerate lowering the dose at all. did use three weeks ago while at family's in [place] and devastated by risk of meconium showing this. Overwhelming issue here is anxiety. How to best address? Objective Vital Signs Vital Signs Date Time Temp Pulse Resp B/P Pulse Ox O2 Delivery O2 Flow Rate FiO2 12/29/16 07:38 74 88/54 12/29/16 07:37 97.6 18 12/29/16 04:54 72 108/53 12/29/16 04:54 97.5 18 12/29/16 00:47 75 96/52 12/29/16 00:46 97.9 18 12/28/16 21:43 98.1 12/28/16 20:32 18 12/28/16 20:30 89 94/52 12/28/16 18:30 99.0 12/28/16 18:07 91 99/51 Lab & Micro Results Test 12/28/16 12/28/16 17:15 18:45 Urine Color YELLOW Urine Turbidity CLEAR Urine pH 5.5 Urine Specific [place] 1.020 Urine Protein NEG mg/dL Urine Glucose (UA) NEG mg/dL Urine Ketones NEG mg/dL Urine Occult Blood NEG Urine Nitrite NEG Urine Bilirubin NEG Urine Urobilinogen LESS THAN 2.0 MG/DL Urine Leukocyte Esterase NEG Urine RBC LESS THAN 1 /hpf Urine WBC 2 /hpf Urine Squamous Epithelial 1 /hpf Cells Urine Bacteria OCC /hpf Urine Mucus FEW /lpf Microscopic Urinalysis Comment CULT NOT INDICATED Urine Opiates Screen NEG Urine Barbiturates Screen NEG Urine Amphetamines Screen NEG Urine Benzodiazepines Screen POS Urine Cocaine Screen NEG Urine Cannabinoids Screen NEG White Blood Count 14.7 TH/MM3 Red Blood Count 3.46 MIL/MM3 Hemoglobin 11.0 GM/DL Hematocrit 32.0 % Mean Corpuscular Volume 92.5 FL Mean Corpuscular Hemoglobin 31.7 PG Mean Corpuscular Hemoglobin 34.3 % Concent Red Cell Distribution Width 13.6 % Platelet Count 158 TH/MM3 Mean Platelet Volume 8.9 FL Sodium Level 131 MEQ/L Potassium Level 2.9 MEQ/L Chloride Level 101 MEQ/L Carbon Dioxide Level 20.6 MEQ/L Anion Gap 9 MEQ/L Blood Urea Nitrogen 5 MG/DL Creatinine 0.45 MG/DL Estimat Glomerular Filtration 156 ML/MIN Rate Random Glucose 107 MG/DL Calcium Level 8.1 MG/DL Total Bilirubin 0.3 MG/DL Aspartate Amino Transf 11 U/L (AST/SGOT) Alanine Aminotransferase 10 U/L (ALT/SGPT) Alkaline Phosphatase 83 U/L Total Protein 6.6 GM/DL Albumin 2.6 GM/DL Date/Time Procedure Status Source Growth 12/28/16 21:40 Aerobic Blood Culture Received Blood Peripheral Pending 12/28/16 21:40 Anaerobic Blood Culture Received Blood Peripheral Pending Physical Exam GENERAL: Well-nourished, well-developed patient. CARDIOVASCULAR: Regular rate and rhythm without murmurs, gallops, or rubs. RESPIRATORY: Breath sounds equal bilaterally. No accessory muscle use. ABDOMEN/GI: Abdomen soft, non-tender. Fundus: [-] GENITOURINARY: External Genitalia: intact and normal in appearance Cervix: [-] Dilatation: [-] Effacement: [-] Station: [-] Presentation: [-] Membranes: [-] Uterine Contractions: [-] FHT's: Category: [-] Baseline: [-] Reactive: [-] Variability: [-] Decels: [-] EXTREMITIES: No cyanosis or edema, non-tender, without signs of DVT. Assessment and Plan Problem List: (1) Opioid use disorder, moderate, in controlled environment Status: Acute (2) Chills with fever Status: Acute (3) Fever of unknown origin (FUO) Status: Acute Assessment and Plan early third trimester JIGNA acutely ill- with negative urine must rule out sepsis, ANTONIA assess for use/relapse Lisette Whitney MD Dec 29, 2016 08:29
[2016-12-29] MEDS: clonazePAM 1 MG TAB PO SCH ×2 (13:21→21:32)
--- NOTE | 2016-12-29 14:38 | PD.ID.CON ---
History of Present Illness Service ID Consult Requested By Reason for Consult Evaluation and management of possible endocarditis in a patient with IV drug abuse and at 28 weeks. Primary Care Physician No Primary Care Physician Diagnoses: History of Present Illness is a 36 y/o CF at 29 weeks who presents to [facility] with history of severe chills, high fever, malaise of acute onset. Patient has a history of substance abuse and has been on possibly Suboxone as outpatient. Patient also has a history of depression, anxiety and PTSD. Patient reports that she recently lost her sister who also did IV drugs and was attending her which she thinks may be a trigger for her relapsed this time. Patient does report history of dysuria but her UA is negative. Patient reports severe anxiety as she thinks she may have infection possibly endocarditis as told to her by her [employer] physician. Patient reports night sweats. Blood cultures drawn on admission are negative so far. I have ordered a 2-D echo which is pending at the present time. I also had a discussion with Dr. Whitney about need for imaging to rule out an epidural abscess given her worsening back pain. I discussed the case with Dr. Everett Glass a radiologist recommended MRI noncontrast of the L-spine to rule out epidural abscess. I discussed this further with Dr. Whitney who agrees with this plan. Infectious disease is consulted for evaluation and management of possible endocarditis in a patient with IV drug abuse and at 28 weeks. Review of Systems ROS Limitations: Poor Historian Constitutional: COMPLAINS OF: Fever, Chills, Night Sweats, DENIES: Diaphoretic episodes, Fatigue, Weight gain, Weight loss, Dizziness, Change in appetite Endocrine: DENIES: Abnorml menstrual pattern, Heat/cold intolerance, Polydipsia , Polyuria, Polyphagia Eyes: DENIES: Blurred vision, Diplopia, Eye inflammation, Eye pain, Vision loss , Photosensitivity, Double Vision Ears, nose, mouth, throat: DENIES: Tinnitus, Hearing loss, Vertigo, Nasal discharge, Oral lesions, Throat pain, Hoarseness, Ear Pain, Running Nose, Epistaxis, Sinus Pain, Toothache, Odynophagia Respiratory: DENIES: Apneas, Cough, Snoring, Wheezing, Hemoptysis, Sputum production, Shortness of breath Cardiovascular: DENIES: Chest pain, Palpitations, Syncope, Dyspnea on Exertion , PND, Lower Extremity Edema, Orthopnea, Claudication Gastrointestinal: DENIES: Abdominal pain, Black stools, Bloody stools, Constipation, Diarrhea, Nausea, Vomiting, Difficulty Swallowing, Anorexia Genitourinary: COMPLAINS OF: Dysuria, DENIES: Abnormal vaginal bleeding, Dysmenorrhea, Dyspareunia, Sexual dysfunction, Urinary frequency, Urinary incontinence, Urgency, Hematuria, Nocturia, Vaginal discharge Musculoskeletal: COMPLAINS OF: Back pain, DENIES: Joint pain, Muscle aches, Stiffness, Joint Swelling, Neck pain Integumentary: DENIES: Abnormal pigmentation, Pruritus, Rash, Nail changes, Breast masses, Breast skin changes, Nipple discharge Hematologic/lymphatic: DENIES: Bruising, Lymphadenopathy Immunologic/allergic: DENIES: Eczema, Urticaria Neurologic: DENIES: Abnormal gait, Headache, Localized weakness, Paresthesias, Seizures, Speech Problems, Tremor, Poor Balance Psychiatric: COMPLAINS OF: Anxiety, DENIES: Confusion, Mood changes, Depression, Hallucinations, Agitation, Suicidal Ideation, Homicidal Ideation, Delusions Past Family Social History Allergies: Coded Allergies: No Known Allergies (Verified , 12/28/16) Past Medical History substance use disorder on MAT depression, anxiety PTSD Possible kidney infections x 2 in past but denies stones. Past Surgical History Breast implants Reported Medications Reported Meds & Active Scripts Active Klonopin (Clonazepam) 1 Mg Tab 1 Mg PO Q8HR Buprenorphine (Buprenorphine HCl) 8 Mg Subl 8 Mg SL DAILY@08,14,20 Zantac 150 Maximum Strength (Ranitidine HCl) 150 Mg Tab 150 Mg PO BID Reglan (Metoclopramide HCl) 10 Mg Tab 10 Mg PO TIDAC Hydroxyzine Pamoate 25 Mg Cap 25 Mg PO Q6H PRN Neurontin (Gabapentin) 300 Mg Cap 600 Mg PO TID Phenergan (Promethazine HCl) 25 Mg Tab 25 Mg PO Q6H PRN Zoloft (Sertraline HCl) 50 Mg Tab 50 Mg PO DAILY Active Ordered Medications Current Medications Medications (Trade) Dose Ordered Sig/Sarina Route Start Time Stop Time Status Last Admin Lactated Ringer's 1,000 ml @ 125 mls/hr Q8H IV 12/28/16 17:35 12/28/16 19:01 (Gentamicin 80 Mg Premix) 100 ml @ 200 mls/hr Q8H IV 12/28/16 20:00 12/30/16 04:00 12/29/16 12:28 (Buprenorphine) 8 mg TID SL 12/29/16 09:00 12/29/16 12:28 (Zoloft) 50 mg HS PO 12/28/16 21:00 12/28/16 20:24 Nicotine 1 patch 1 patch DAILY T-DERMAL 12/28/16 20:00 12/29/16 08:13 Ampicillin Sodium 2000 mg/Sodium Chloride 100 ml @ 300 mls/hr Q6H IV 12/29/16 02:00 12/30/16 04:00 12/29/16 13:21 (KCl Inj/Lr 1000 ml Inj) 1,020 ml @ 125 mls/hr Q8H10M IV 12/28/16 22:00 12/29/16 08:12 (KlonoPIN) 1 mg Q8HR PO 12/29/16 14:00 12/29/16 13:21 (Ambien) 10 mg HS PRN PO 12/29/16 16:30 Miscellaneous Information 1 HS T-DERMAL 12/29/16 21:00 Family History Multiple family members with history of IV drug abuse. Patient reports that her sister from overdose from IV heroin recently. Social History Intravenous drug abuse has used heroin, Dilaudid and Xanax in the past. Denies any alcohol particularly in the . Denies any smoking particularly in the Denies being in any relationship and no recent sexual activity. Denies any sexually transmitted diseases. Physical Exam Vital Signs Vital Signs Date Time Temp Pulse Resp B/P Pulse Ox O2 Delivery O2 Flow Rate FiO2 12/29/16 12:30 17 12/29/16 12:30 97.5 12/29/16 12:25 77 89/53 12/29/16 07:38 74 88/54 12/29/16 07:37 97.6 18 12/29/16 04:54 72 108/53 12/29/16 04:54 97.5 18 12/29/16 00:47 75 96/52 12/29/16 00:46 97.9 18 12/28/16 21:43 98.1 12/28/16 20:32 18 12/28/16 20:30 89 94/52 12/28/16 18:30 99.0 12/28/16 18:07 91 99/51 Physical Exam GENERAL: This is a well-nourished, well-developed patient, in no apparent distress. SKIN: No rashes, ecchymoses or lesions. Cool and dry. Track arvizu noted. HEAD: Atraumatic. Normocephalic. No temporal or scalp tenderness. EYES: Pupils equal round and reactive. Extraocular motions intact. No scleral icterus. No injection or drainage. ENT: Nose without bleeding, purulent drainage or septal hematoma. Throat without erythema, tonsillar hypertrophy or exudate. Uvula midline. Airway patent. NECK: Trachea midline. Supple, nontender, no meningeal signs. CARDIOVASCULAR: Regular rate and rhythm without murmurs, gallops, or rubs. RESPIRATORY: Clear to auscultation. Breath sounds equal bilaterally. No wheezes , rales, or rhonchi. GASTROINTESTINAL: Abdomen soft, non-tender, Gravid uterus. MUSCULOSKELETAL: Extremities without clubbing, cyanosis, or edema. No joint tenderness, effusion, or edema noted. No calf tenderness. Negative Homans sign bilaterally. ? Tenderness noted in the lumbar region. NEUROLOGICAL: Awake and alert. Nonfocal Psych cooperative IV line sites with no evidence of infection. Laboratory Laboratory Tests Test 12/28/16 12/28/16 17:15 18:45 Urine Color YELLOW Urine Turbidity CLEAR Urine pH 5.5 Urine Specific [place] 1.020 Urine Protein NEG Urine Glucose (UA) NEG Urine Ketones NEG Urine Occult Blood NEG Urine Nitrite NEG Urine Bilirubin NEG Urine Urobilinogen LESS THAN 2.0 Urine Leukocyte Esterase NEG Urine RBC LESS THAN 1 Urine WBC 2 Urine Squamous Epithelial 1 Cells Urine Bacteria OCC Urine Mucus FEW Microscopic Urinalysis Comment CULT NOT INDICATED Urine Opiates Screen NEG Urine Barbiturates Screen NEG Urine Amphetamines Screen NEG Urine Benzodiazepines Screen POS Urine Cocaine Screen NEG Urine Cannabinoids Screen NEG White Blood Count 14.7 Red Blood Count 3.46 Hemoglobin 11.0 Hematocrit 32.0 Mean Corpuscular Volume 92.5 Mean Corpuscular Hemoglobin 31.7 Mean Corpuscular Hemoglobin 34.3 Concent Red Cell Distribution Width 13.6 Platelet Count 158 Mean Platelet Volume 8.9 Sodium Level 131 Potassium Level 2.9 Chloride Level 101 Carbon Dioxide Level 20.6 Anion Gap 9 Blood Urea Nitrogen 5 Creatinine 0.45 Estimat Glomerular Filtration 156 Rate Random Glucose 107 Calcium Level 8.1 Total Bilirubin 0.3 Aspartate Amino Transf 11 (AST/SGOT) Alanine Aminotransferase 10 (ALT/SGPT) Alkaline Phosphatase 83 Total Protein 6.6 Albumin 2.6 Date/Time Procedure Status Source Growth 12/28/16 21:40 Aerobic Blood Culture - Preliminary Resulted Blood Peripheral NO GROWTH IN 1 DAY 12/28/16 21:40 Anaerobic Blood Culture - Preliminary Resulted Blood Peripheral NO GROWTH IN 1 DAY Result Diagram: 12/28/16 1845 12/28/16 1845 Assessment and Plan Assessment and Plan Possible endocarditis Possible epidural abscess or discitis Recent history of IV drug abuse 29 weeks Substance abuse disorder. Recommendations Continue ampicillin IV Continue gentamicin IV for now Follow blood cultures Follow clinically Urgent 2-D echo ordered. bioinformatics research technician called by nurse. Case discussed with Dr. Glass radiology who recommends MRI spine noncontrast to look for epidural abscess. Case discussed with Dr. Whitney: Updated about the plan. Case discussed with patient and presence of RN. Consults psychiatry for severe anxiety Check HIV antibody as well as HIV DNA PCR to rule out acute retroviral syndrome. Dr. Ed Marino will cover for me this weekend. Please call her sooner if any acute change or abnormal test results. Marcelina Neville MD Dec 29, 2016 14:38
[2016-12-29] MEDS ORDERED: ZOLPIDEM TARTRATE 10 MG TAB PO PRN (16:30)
--- NOTE | 2016-12-29 19:56 | ECHRPT ---
Indication: RECENT IVDA, 28 WKS ,CONCERN FOR BACTERIAL ENDOCARDITIS CONCLUSIONS Normal left ventricular size. Wall thickness is normal. The left ventricular systolic function is low normal with an estimated ejection fraction in the rang e of 50- 55%. No regional wall motion abnormalities are present. Trace mitral valve regurgitation. No evidence of vegetation. No evidence of vegetation. There is mild tricuspid valve regurgitation. The there is estimated mild pulmonary hypertension present (range 40-50 mmHg). No evidence of vegetation. No visible vegetation.The inferior vena cava is mildly dilated. There is less than 50% respiratory change in dimension of the inferior vena cava (abnormal). BP: 89 / 53 HR: 77 Rhythm: Sinus MEASUREMENTS (Male / Female) Normal Values Technical Quality:Good 2D ECHO LV Diastolic Diameter PLAX 4.6 cm 4.2 - 5.9 / 3.9 - 5.3 cm LV Systolic Diameter PLAX 3.6 cm IVS Diastolic Thickness 0.6 cm 0.6 - 1.0 / 0.6 - 0.9 cm LVPW Diastolic Thickness 0.6 cm 0.6 - 1.0 / 0.6 - 0.9 cm LV Relative Wall Thickness 0.3 LVOT Diameter 1.9 cm Aortic Root Diameter 2.4 cm LA Systolic Diameter LX 3.7 cm 3.0 - 4.0 / 2.7 - 3.8 cm M-MODE AV Cusp Separation MM 1.9 cm DOPPLER AV Peak Velocity 160.0 cm/s AV Peak Gradient 10.2 mmHg AV Mean Gradient 5.0 mmHg AV Velocity Time Integral 30.9 cm LVOT Peak Velocity 115.0 cm/s LVOT Peak Gradient 5.3 mmHg LVOT Velocity Time Integral 20.4 cm LVOT Cardiac Index 2729.1 cm/minm AV Area Cont Eq vti 1.9 cm AV Area Cont Eq pk 2.0 cm Mitral E Point Velocity 111.0 cm/s Mitral A Point Velocity 90.3 cm/s Mitral E to A Ratio 1.2 LV E' Lateral Velocity 13.2 cm/s Mitral E to LV E' Lateral Ratio 8.4 LV E' Septal Velocity 8.9 cm/s Mitral E to LV E' Septal Ratio 12.5 TR Peak Velocity 274.0 cm/s TR Peak Gradient 30.0 mmHg PV Peak Velocity 82.0 cm/s PV Peak Gradient 2.7 mmHg FINDINGS LEFT VENTRICLE Normal left ventricular size. Wall thickness is normal. The left ventricular systolic function is low normal with an estimated ejection fraction in the rang e of 50- 55%. No regional wall motion abnormalities are present. Left ventricular diastolic function parameters are normal. RIGHT VENTRICLE Normal right ventricular size and systolic function. LEFT ATRIUM The left atrial size is normal. RIGHT ATRIUM The right atrial size is normal. ATRIAL SEPTUM Normal atrial septal thickness without atrial level shunting by limited color doppler interrogation. AORTA The aortic root and proximal ascending aorta are normal in size on limited imaging. MITRAL VALVE Structurally normal mitral valve. Trace mitral valve regurgitation. No evidence of vegetation. AORTIC VALVE Trileaflet aortic valve. No aortic valve stenosis or regurgitation. No evidence of vegetation. TRICUSPID VALVE Structurally normal tricuspid valve. There is mild tricuspid valve regurgitation. The there is estimated mild pulmonary hypertension present (range 40-50 mmHg). No evidence of vegetation. PULMONARY VALVE No pulmonary valve regurgitation or stenosis. No visible vegetation. VESSELS The inferior vena cava is mildly dilated. There is less than 50% respiratory change in dimension of the inferior vena cava (abnormal). PERICARDIUM No pericardial effusion. Tresa Tapia MD, FACC (Electronically Signed) Final Date:29 December 2016 19:55
[2016-12-29] MEDS ORDERED: REMOVE OLD NICODERM (NICOTINE) PATCH T-DERMAL SCH (21:00)
[2016-12-29] MEDS: SERTRALINE HCL 50 MG TAB PO SCH (21:32)
--- NOTE | 2016-12-29 21:38 | RADRPT ---
EXAM DATE/TIME: 12/29/2016 19:48 [facility] COMPARISON: No previous studies available for comparison. INDICATIONS : Low back pain/fever MEDICAL HISTORY : . SURGICAL HISTORY : Breast implants. ENCOUNTER: Initial ACUITY: 1 day PAIN SCORE: 4/10 LOCATION: TECHNIQUE: Multiplanar multisequence MRI of the lumbar spine was performed without contrast. FINDINGS: The most caudal appearing lumbar vertebra is numbered as L5. VERTEBRAE: Homogeneous signal. Normal alignment. CONUS: Normal level and configuration. T12-L1: The thecal sac has a normal diameter. No evidence of disc bulge or protrusion. The neural foramina are patent bilaterally. L1-L2: The thecal sac has a normal diameter. No evidence of disc bulge or protrusion. The neural foramina are patent bilaterally. L2-L3: The thecal sac has a normal diameter. No evidence of disc bulge or protrusion. The neural foramina are patent bilaterally. L3-L4: The thecal sac has a normal diameter. No evidence of disc bulge or protrusion. The neural foramina are patent bilaterally. L4-L5: The thecal sac has a normal diameter. No evidence of disc bulge or protrusion. The neural foramina are patent bilaterally. L5-S1: Mild disc bulge or protrusion without stenosis.. CONCLUSION: 1. Past L5-S1 there is a mild posterior disc bulge or protrusion without significant canal or foramin al stenosis. Remainder of lumbar spine unremarkable. Conus intact. Normal alignment. Anthony Bermeo MD on December 29, 2016 at 21:33 Board Certified Radiologist. This report was verified electronically.
[2016-12-30 02:33] VITALS: RESP 18
[2016-12-30 02:35] VITALS: BP 86/47; PULSE 73; TEMP 98.3
[2016-12-30] MEDS: POTASSIUM CHLORIDE INJ 40 MEQ in LACTATED RINGER'S 1000 ML INJ 1,000 ML IV SCH (03:55)
[2016-12-30] MEDS: GENTAMICIN 80 MG PREMIX 100 ML IV SCH (03:56)
[2016-12-30] MEDS: AMPICILLIN 2 GM/NS 100 ML IV SCH ×2 (03:57)
[2016-12-30 04:00] VITALS: RESP 16
[2016-12-30 04:37] LABS: AUTOMATED NEUTROPHIL # 5.4 TH/MM3 (1.8-7.7); BASOPHIL % 0.5 % (0.0-2.0); EOSINOPHIL # 0.1 TH/MM3 (0-0.4); EOSINOPHIL % 1.7 % (0.0-4.0); HEMATOCRIT 26.5 % (35.0-46.0); HEMO FLAGS DIFF FINAL; LYMPH % 21.9 % (9.0-44.0); LYMPHOCYTE # 1.9 TH/MM3 (1.0-4.8); MEAN CELL VOLUME 92.5 FL (80.0-100.0); MEAN CORPUSCULAR HEMOGLOBIN 33.1 PG (27.0-34.0); MEAN CORPUSCULAR HGB CONC 35.8 % (32.0-36.0); MONO % 12.7 % (0.0-8.0); NEUT % 63.2 % (16.0-70.0); PLATELET COUNT 170 TH/MM3 (150-450); RED BLOOD COUNT 2.86 MIL/MM3 (4.00-5.30); RED CELL DISTRIBUTION WIDTH 13.9 % (11.6-17.2); WHITE BLOOD COUNT 8.6 TH/MM3 (4.0-11.0)
[2016-12-30 05:29] LABS: ALKALINE PHOSPHATASE 65 U/L (45-117); ALT (GPT) 11 U/L (10-53); ANION GAP 11 MEQ/L (5-15); AST (GOT) 7 U/L (15-37); BICARBONATE 21.3 MEQ/L (21.0-32.0); BLOOD UREA NITROGEN 6 MG/DL (7-18); CHLORIDE 111 MEQ/L (98-107); GLOMERULAR FILTRATION RATE 152 ML/MIN (>89); POTASSIUM 4.1 MEQ/L (3.5-5.1); SODIUM (NA) 143 MEQ/L (136-145); TOTAL BILIRUBIN ADULT 0.1 MG/DL (0.2-1.0)
[2016-12-30 06:00] VITALS: RESP 18
[2016-12-30] MEDS: SERTRALINE HCL 100 MG TAB PO SCH (06:56)
[2016-12-30] MEDS: clonazePAM 1 MG TAB PO SCH (06:56)
[2016-12-30 07:49] VITALS: BP 97/57; PULSE 74; RESP 16; TEMP 97.9
[2016-12-30] MEDS: BUPRENORPHINE HCL 8 MG SUBLINGUAL TAB SL SCH (08:45)
[2016-12-30] MEDS: NICOTINE 21 MG/24 HR PATCH T-DERMAL SCH (08:46)
--- NOTE | 2016-12-30 12:01 | PD.PSY.CON ---
Provisional Diagnosis Admission Date Dec 28, 2016 at 17:41 History of Present Illness Service Psychiatry Consult Requested By Reason for Consult Substance dependence Primary Care Physician No Primary Care Physician Past Family Social History Coded Allergies: No Known Allergies (Verified , 12/28/16) Active Scripts Clonazepam (Klonopin)1 Mg Tab1 Mg PO Q8HR #21 TAB Prov:Lisette Whitney MD 11/16/16 Buprenorphine 8 Mg Subl8 Mg SL DAILY@08,14,20 #14 TAB Prov:Lisette Whitney MD 11/16/16 Ranitidine (Zantac 150 Maximum Strength)150 Mg Eek954 Mg PO BID #60 TAB Prov:Lisette Whitney MD 10/05/16 Metoclopramide (Reglan)10 Mg Tab10 Mg PO TIDAC #30 TAB Ref 0 Prov:Lisette Whitney MD 10/05/16 Hydroxyzine Pamoate 25 Mg Cap25 Mg PO Q6H PRN (SKIN CRAWLING) #90 CAP Prov:Lisette Whitney MD 09/27/16 Gabapentin (Neurontin)300 Mg Opl757 Mg PO TID #21 CAP Prov:Lisetet Whitney MD 09/27/16 Promethazine (Phenergan)25 Mg Tab25 Mg PO Q6H PRN (nausea and vomiting) #20 TAB Prov:Lisette Whitney MD 09/27/16 Sertraline (Zoloft)50 Mg Tab50 Mg PO DAILY #90 TAB Prov:Lisette Whitney MD 09/27/16 Physical Exam Vital Signs Vital Signs Date Time Temp Pulse Resp B/P Pulse Ox O2 Delivery O2 Flow Rate FiO2 12/30/16 07:49 97.9 74 16 97/57 12/29/16 12:45 100 Assessment & Plan Problem List: (1) Opioid use disorder, moderate, in controlled environment Assessment & Plan: Patient was discharged before being seen by psychiatry. ICD Code: F11.20 Assessment & Plan Estimated LOS: Dylon Robledo MD Dec 30, 2016 12:01
[2016-12-31 23:53] LABS: HCV RNA PCR IU/ML LESS THAN 15 IU/mL (()); HCV RNA PCR LOGIU/ML LESS THAN 1.18 (())
[2017-01-03 08:58] LABS: PHENCYCLIDINE URINE NEG (NEG)
[2017-01-03 09:01] LABS: BATH SALTS (MDPV) UR NEG (NEG); ECSTASY (MDMA) UR NEG (NEG); GABAPENTIN UR NEG (NEG); HEROIN (6-ACETYLMORPHINE) UR NEG (NEG); HYDROMORPHONE U NEG (NEG); K2 SPICE UR NEG (NEG); OBMETHADONE UR NEG (NEG)
[2017-02-19] MEDS ORDERED: PREN29TA PO (10:18)
[2017-02-19] MEDS ORDERED: SERO200T PO (10:19)
== END 2016-12-30 09:53 | disposition home or self-care (01) ==
LOC: HOBED 16:43 → H2EA 17:41
PROVIDERS: ADMIT Obstetrics & Gynecology; ATTEND Obstetrics & Gynecology
DX: O99.323 Drug use complicating pregnancy, third trimester (principal); F11.90 Opioid use, unspecified, uncomplicated; O26.893 Other specified pregnancy related conditions, third trimester; R50.9 Fever, unspecified; R53.81 Other malaise; M54.5 Low back pain; R06.4 Hyperventilation; R07.9 Chest pain, unspecified; R06.02 Shortness of breath; R61 Generalized hyperhidrosis; R30.0 Dysuria; R01.1 Cardiac murmur, unspecified; O99.343 Other mental disorders complicating pregnancy, third trimester; F31.9 Bipolar disorder, unspecified; F41.9 Anxiety disorder, unspecified; F43.10 Post-traumatic stress disorder, unspecified; O99.333 Smoking (tobacco) complicating pregnancy, third trimester; Z79.899 Other long term (current) drug therapy; Z3A.29 29 weeks gestation of pregnancy
CPT/HCPCS: 59025; 72148; 80053; 80074; 80307; 81001; 85025; 85027; 86703; 87040; 87522; 87535; 93306; 96365; 96366; 96376; 99285; G0378; G0481; J0290; J1580; J3480; J7120

== ENCOUNTER 2017-01-04 14:05 | Emergency (ER) | payer MEDICAID ==
[~2017-01-04] VITALS: Ht 165.1 cm; Wt 58.1 kg
[2017-01-04] MEDS ORDERED: LACTATED RINGER'S 1000 ML INJ 1,000 ML IV SCH (15:06)
--- NOTE | 2017-01-04 15:06 | PD ---
HPI Chief Complaint Fever and chills Date Seen: Jan 04, 2017 Travel History International Travel<30 Days: No Contact w/Intl Traveler<30Days: No History of Present Illness HPI Patient is a 36-year-old at 293/7 weeks gestation who presents today for fever and chills. Patient started having chills and feeling very cold this morning. She sat out on [place] wrapped in blankets because she was having difficulty getting warm. She is now sweating profusely. She took her temperature at home and found that it was 102. She also notes no movement today. She denies any chest pain, shortness of breath, nausea, vomiting, headache, or abdominal pain. She is very hungry and very thirsty. She denies any vaginal bleeding or discharge. No gush or leaking of fluid. No contractions. History Past Medical History Narrative Medical anxiety, bipolar affective disorder, depression, PTSD Obstetric History Obstetric History elective for Alegre syndrome Spontaneous full-term delivery while on methadone of a 5 lbs. 1 oz. 21 inch girl born on 03[birth year] Past Surgical History Narrative Surgical Breast augmentation Family History Narrative Family History Sister and grandmother with diabetes Social History Alcohol Use: No Tobacco Use: Yes (1/2 ppd) Substance Abuse: No Allergies-Medications (Allergen,Severity, Reaction): Coded Allergies: No Known Allergies (Verified , 01/04/17) Home Meds Active Scripts Clonazepam (Klonopin)1 Mg Tab1 Mg PO Q8HR #21 TAB Prov:Lisette Whitney MD 11/16/16 Buprenorphine 8 Mg Subl8 Mg SL DAILY@, #14 TAB Prov:Lisette Whitney MD 11/16/16 Ranitidine (Zantac 150 Maximum Strength)150 Mg Qgu327 Mg PO BID #60 TAB Prov:Lisette Whitney MD 10/05/16 Metoclopramide (Reglan)10 Mg Tab10 Mg PO TIDAC #30 TAB Ref 0 Prov:Lisette Whitney MD 10/05/16 Hydroxyzine Pamoate 25 Mg Cap25 Mg PO Q6H PRN (SKIN CRAWLING) #90 CAP Prov:Lisette Whitney MD 5/10/17 Gabapentin (Neurontin)300 Mg [id number] Mg PO TID #21 CAP Prov:Lisette Whitney MD 09/27/16 Promethazine (Phenergan)25 Mg Tab25 Mg PO Q6H PRN (nausea and vomiting) #20 TAB Prov:Lisette Whitney MD 09/27/16 Sertraline (Zoloft)50 Mg Tab50 Mg PO DAILY #90 TAB Prov:Lisette Whitney MD 09/27/16 Review of Systems Except as stated in HPI: all other systems reviewed are Neg General / Constitutional: Fever, Chills Eyes: No: Blurred Vision HENT: No: Headaches Cardiovascular: No: Chest Pain or Discomfort, Palpitations Respiratory: No: Cough, Short of Breath Gastrointestinal: No: Nausea, Vomiting, Abdominal Pain Genitourinary: No: Dysuria, Hematuria, Pelvic Pain, Discharge, Vaginal Bleeding Musculoskeletal: No: Edema Neurologic: No: Headache Physical Exam Narrative GENERAL: Well-nourished, well-developed patient. SKIN: Warm and dry. HEAD: Normocephalic and atraumatic. EYES: No scleral icterus. No injection or drainage. ENT: No nasal drainage noted. Mucous membranes pink. Airway patent. NECK: Supple, trachea midline. No JVD. CARDIOVASCULAR: Regular rate and rhythm with 1/6 KEY[place], gallops, or rubs. RESPIRATORY: Breath sounds equal bilaterally. No accessory muscle use. ABDOMEN/GI: Abdomen soft, non-tender, bowel sounds present, no rebound, no guarding Gravid to 29 weeks size GENITOURINARY: External Genitalia: intact and normal in appearance Membranes: intact Uterine Contractions: none FHT's: Category: II Baseline: 148 Reactive: + Variability: moderate Decels: occasional variable decelerations EXTREMITIES: No cyanosis or edema. BACK: Nontender without obvious deformity. No CVA tenderness. NEUROLOGICAL: Awake and alert. Motor and sensory grossly within normal limits. Five out of 5 muscle strength in all muscle groups. Normal speech. Data Data Vital Signs Reviewed: Yes MDM Medical Record Reviewed: Yes Narrative Course / MDM 36 year old at 29-3/7 weeks gestation. 1. IUP- Category II tracing- will give IV LR 2. Decreased Movement- tracing reassuring, will continue to monitor fht/ toco 3. Fever and chills- Vitals stable, afebrile. Will obtain CBC, UA, CMP, blood cultures, and UDS. dw Dr. Escobar and April Montesinos MD, R3 Jan 04, 2017 15:06 April Bourgeois MD, R3 Jan 04, 2017 15:06
[2017-01-04] MEDS ORDERED: SODIUM CHLORIDE 0.9% FLUSH 10 ML FLUSH IV FLUSH PRN (16:45)
[2017-01-04] MEDS ORDERED: ACETAMINOPHEN 325 MG TAB PO PRN (16:45)
[2017-01-04] MEDS ORDERED: ONDANSETRON ODT 4 MG TAB PO PRN (16:45)
[2017-01-04] MEDS ORDERED: ZOLPIDEM TARTRATE 5 MG TAB PO PRN (16:45)
[2017-01-04 16:52] LABS: HEMATOCRIT 30.5 % (35.0-46.0); MEAN CELL VOLUME 92.2 FL (80.0-100.0); MEAN CORPUSCULAR HEMOGLOBIN 31.9 PG (27.0-34.0); MEAN CORPUSCULAR HGB CONC 34.6 % (32.0-36.0); PLATELET COUNT 139 TH/MM3 (150-450); RED BLOOD COUNT 3.31 MIL/MM3 (4.00-5.30); RED CELL DISTRIBUTION WIDTH 13.5 % (11.6-17.2); REVIEW FLAG FINAL
[2017-01-04 17:12] LABS: ANION GAP 9 MEQ/L (5-15); AST (GOT) 7 U/L (15-37); BICARBONATE 20.7 MEQ/L (21.0-32.0); BLOOD UREA NITROGEN 5 MG/DL (7-18); CHLORIDE 103 MEQ/L (98-107); GLOMERULAR FILTRATION RATE 190 ML/MIN (>89); POTASSIUM 3.2 MEQ/L (3.5-5.1); SODIUM (NA) 133 MEQ/L (136-145)
[2017-01-04 17:13] LABS: ALT (GPT) 10 U/L (10-53)
[2017-01-04 17:15] LABS: ALKALINE PHOSPHATASE 105 U/L (45-117); TOTAL BILIRUBIN ADULT 0.3 MG/DL (0.2-1.0)
[2017-01-04 17:49] LABS: BACTERIA, URINE MANY /hpf; BLOOD, URINE NEG (NEG); GLUCOSE,URINE NEG (NEG); HYALINE CAST, URINE 3 /lpf (RARE); KETONE, URINE TRACE mg/dL (NEG); MUCUS URINE FEW /lpf (OCC); NITRITE,URINE NEG (NEG); SQUAMOUS EPITHELIAL CELL URINE 7 /hpf (0-5)
[2017-01-04 17:56] LABS: COMMENT (UR) CULTURE INDICATED; CULTURE IF INDICATED CULTURE INDICATED; URINE COLOR ORANGE (YELLW/STRAW)
[2017-01-04] MEDS ORDERED: clonazePAM 1 MG TAB PO SCH (19:15)
[2017-01-04] MEDS ORDERED: SODIUM CHLORIDE 0.9% FLUSH 10 ML FLUSH IV FLUSH SCH (21:00)
[2017-01-05] MEDS ORDERED: MULTIVIT/MIN/PREN/FOL AC/IRON PRENATAL TAB PO SCH (09:00)
[2017-01-05] MEDS ORDERED: BUPRENORPHINE HCL 8 MG SUBLINGUAL TAB SL SCH (19:15)
[2017-01-10 13:37] LABS: PHENCYCLIDINE URINE NEG (NEG)
[2017-01-10 13:40] LABS: BATH SALTS (MDPV) UR NEG (NEG); ECSTASY (MDMA) UR NEG (NEG); HEROIN (6-ACETYLMORPHINE) UR NEG (NEG); K2 SPICE UR NEG (NEG); OBMETHADONE UR NEG (NEG)
[2017-01-10 13:41] LABS: GABAPENTIN UR NEG (NEG); HYDROMORPHONE U NEG (NEG)
[2017-02-19] MEDS ORDERED: PREN29TA PO (10:18)
[2017-02-19] MEDS ORDERED: SERO200T PO (10:19)
== END 2017-01-04 19:44 | disposition home or self-care (01) ==
LOC: HOBED 14:05
DX: O36.8130 Decreased fetal movements, third trimester, not applicable or unspecified (principal); R50.9 Fever, unspecified; O99.343 Other mental disorders complicating pregnancy, third trimester; F41.9 Anxiety disorder, unspecified; F31.9 Bipolar disorder, unspecified; F43.10 Post-traumatic stress disorder, unspecified; O99.333 Smoking (tobacco) complicating pregnancy, third trimester; Z3A.29 29 weeks gestation of pregnancy; Z79.899 Other long term (current) drug therapy
CPT/HCPCS: 80053; 80307; 81001; 85027; 87040; 87086; 99284; G0481; J7120

== ENCOUNTER 2017-02-12 01:31 | Emergency (ER) | payer MEDICAID ==
--- NOTE | 2017-02-12 02:56 | PD ---
HPI Chief Complaint Contractions Date Seen: Feb 12, 2017 Time Seen: 01:35 Travel History International Travel<30 Days: No Contact w/Intl Traveler<30Days: No Known Affected Area: No History of Present Illness HPI Patient is 36-year-old white female at [address] Whitney's presents with contractions denies bleeding or leakage of fluid, heart rate tracing is reactive and she is geni irregularly Weeks Gestation: 35 Para: 1 : 4 Last Menstrual Period: Feb 12, 2017 History Obstetric History Obstetric History One vaginal delivery 2 losses Social History Alcohol Use: No Tobacco Use: No Substance Abuse: No Allergies-Medications (Allergen,Severity, Reaction): Coded Allergies: No Known Allergies (Verified , 01/04/17) Home Meds Active Scripts Clonazepam (Klonopin) 1 Mg Tab, 1 MG PO Q8HR for Agitation, #21 TAB Prov:Lisette Whitney MD 11/16/16 Buprenorphine (Buprenorphine) 8 Mg Subl, 8 MG SL DAILY@08,14,20 for opioid addiction, #14 TAB Prov:Lisette Whitney MD 11/16/16 Ranitidine (Zantac 150 Maximum Strength) 150 Mg Tab, 150 MG PO BID for gerd, # 60 TAB Prov:Lisette Whitney MD 10/05/16 Metoclopramide (Reglan) 10 Mg Tab, 10 MG PO TIDAC for Reflux, #30 TAB 0 Refills Prov:Lisette Whitney MD 10/05/16 Hydroxyzine Pamoate (Hydroxyzine Pamoate) 25 Mg Cap, 25 MG PO Q6H Y for SKIN CRAWLING, #90 CAP Prov:Lisette Whitney MD 09/27/16 Gabapentin (Neurontin) 300 Mg Cap, 600 MG PO TID for seizure reduction, #21 CAP Prov:Lisette Whitney MD 09/27/16 Promethazine (Phenergan) 25 Mg Tab, 25 MG PO Q6H Y for nausea and vomiting, #20 TAB Prov:Lisette Whitney MD 09/27/16 Sertraline (Zoloft) 50 Mg Tab, 50 MG PO DAILY for depression, #90 TAB Prov:Lisette Whitney MD 09/27/16 Review of Systems General / Constitutional: No: Fever, Weight Gain, Chills, Other Eyes: No: Diploplia, Blurred Vision, Visual changes, Pain, Photophobia HENT: No: Headaches, Vertigo, Lightheadedness Cardiovascular: No: Irregular Rhythm, Chest Pain or Discomfort, Palpitations, Tachycardia, Syncope, Varicosities, Edema, Cyanosis Respiratory: No: Cough, Short of Breath, Other Gastrointestinal: Abdominal Pain, No: Nausea, Vomiting, Diarrhea Genitourinary: No: Decreased Urinary Output, Oliguria Musculoskeletal: No: Limited ROM, Weakness, Cramping, Edema, Pain Skin: No Rash, No Itching, No Dryness, No Lumps, No Change in Pigmentation, No Change in Nails, No Alopecia, No Lesions Neurologic: No: Weakness, Dizziness, Syncope, Focal Abnormalities, Coordination Problem, Headache, Slurred Speech, Seizures Psychiatric: No: Depression, Suicidal Ideations, Homicidal Ideation Endocrine: No: Heat Intolerance, Cold Intolerance, Polydipsia, Polyuria, Other Physical Exam Narrative GENERAL: Well-nourished, well-developed patient. SKIN: Warm and dry. HEAD: Normocephalic and atraumatic. EYES: No scleral icterus. No injection or drainage. ENT: No nasal drainage noted. Mucous membranes pink. Airway patent. NECK: Supple, trachea midline. No JVD. CARDIOVASCULAR: Regular rate and rhythm without murmurs, gallops, or rubs. RESPIRATORY: Breath sounds equal bilaterally. No accessory muscle use. BREASTS: Bilateral exam showed no masses , no retractions, no nipple discharge. ABDOMEN/GI: Abdomen soft, non-tender, bowel sounds present, no rebound, no guarding Gravid to [35] weeks size Fundal Height: [35-] GENITOURINARY: External Genitalia: intact and normal in appearance BUS glands: [-] Cervix: [post-] Dilatation: [2-3-] Effacement: [60-] Station: [-1] Presentation: [vtx-] Membranes: [intact ] Uterine Contractions: [irreg-] FHT's: Category: [1-] Baseline: [-133] Reactive: [-yes] Variability: [mod-] Decels: [-none] EXTREMITIES: No cyanosis or edema. BACK: Nontender without obvious deformity. No CVA tenderness. NEUROLOGICAL: Awake and alert. Motor and sensory grossly within normal limits. Five out of 5 muscle strength in all muscle groups. Normal speech. MDM Interpretation(s) Patient is 36-year-old white female at [address] Whitney presents planning contractions, denies bleeding or leakage of fluid. heart tracing is reactive and she is geni irregularly. Patient's that she was geni with pain when she was at home but now that she's here she has no pain she doesn't really feel the contractions she is having. Plan Plan to the patient to discharge home to return for increase in pain or recurrence of contraction pain, she is to increase by mouth fluid for hydration use Tylenol liberally by mouth, heating pad or hot bath for symptomatic relief Diagnosis Diagnosis: Primary Impression: Premature uterine contractions in third trimester, antepartum Disposition: 01 DISCHARGE HOME Condition: Stable Patient Instructions: General Instructions, Labor (ED) Additional Instructions: RETURN FOR CONTRACTIONS, LOSS OF FLUID (WATER BREAKING), VAGINAL BLEEDING, OR DECREASED MOVEMENT DRINK 8-10 LARGE GLASSES OF WATER EVERY DAY KEEP SCHEDULED APPOINTMENT WITH YOUR PROVIDER Departure Forms: Tests/Procedures Deyvi Mas II, MD Feb 12, 2017 02:56
[2017-02-19] MEDS ORDERED: PREN29TA PO (10:18)
[2017-02-19] MEDS ORDERED: SERO200T PO (10:19)
== END 2017-02-12 03:04 | disposition home or self-care (01) ==
LOC: HOBED 01:31
DX: O47.03 False labor before 37 completed weeks of gestation, third trimester (principal); Z3A.35 35 weeks gestation of pregnancy
CPT/HCPCS: 59025

== ENCOUNTER 2017-02-15 12:33 | Emergency (ER) | payer MEDICAID ==
[~2017-02-15] VITALS: Ht 165.1 cm; Wt 70.3 kg
[2017-02-15] MEDS ORDERED: BETAMETHASONE SOD PHOS/ACETATE SUSP 30 MG/5 ML VIAL IM SCH (14:00)
--- NOTE | 2017-02-15 14:21 | PD ---
HPI Chief Complaint ctx Travel History International Travel<30 Days: No Contact w/Intl Traveler<30Days: No Known Affected Area: No History of Present Illness HPI 36-year-old , IUP at 35.3 care complicated by history of IV drug abuse, currently managed on Subutex, hepatitis C, advanced maternal age Patient presents complaining of onset of contractions 4 days ago which occur anywhere from every 3-7 minutes very irregular in nature. There are no aggravating or alleviating factors and have been no attempted treatments She reports that she is not sleeping well and has had lower back pain during the same time. She denies any leaking of fluid or vaginal bleeding. She reports good movement. She reports that she has lost her entire mucous plug. She reports associated vaginal pressure. History Past Medical History Narrative Medical Hepatitis C, history of IV drug abuse Obstetric History Obstetric History 0-1 NSV 1 AB 2 Past Surgical History Narrative Surgical EAB Family History Narrative Family History DM Social History Alcohol Use: No Tobacco Use: Yes Substance Abuse: Yes Allergies-Medications (Allergen,Severity, Reaction): Coded Allergies: No Known Allergies (Verified , 02/15/17) Home Meds Active Scripts Clonazepam (Klonopin) 1 Mg Tab, 1 MG PO Q8HR for Agitation, #21 TAB Prov:Lisette Whitney MD 11/16/16 Buprenorphine (Buprenorphine) 8 Mg Subl, 8 MG SL DAILY@08,14,20 for opioid addiction, #14 TAB Prov:Lisette Whitney MD 11/16/16 Ranitidine (Zantac 150 Maximum Strength) 150 Mg Tab, 150 MG PO BID for gerd, # 60 TAB Prov:Lisette Whitney MD 10/05/16 Metoclopramide (Reglan) 10 Mg Tab, 10 MG PO TIDAC for Reflux, #30 TAB 0 Refills Prov:Lisette Whitney MD 10/05/16 Hydroxyzine Pamoate (Hydroxyzine Pamoate) 25 Mg Cap, 25 MG PO Q6H Y for SKIN CRAWLING, #90 CAP Prov:Lisette Whitney MD 09/27/16 Gabapentin (Neurontin) 300 Mg Cap, 600 MG PO TID for seizure reduction, #21 CAP Prov:Lisette Whitney MD 09/27/16 Promethazine (Phenergan) 25 Mg Tab, 25 MG PO Q6H Y for nausea and vomiting, #20 TAB Prov:Lisette Whitney MD 09/27/16 Sertraline (Zoloft) 50 Mg Tab, 50 MG PO DAILY for depression, #90 TAB Prov:Lisette Whitney MD 09/27/16 Review of Systems Except as stated in HPI: all other systems reviewed are Neg Physical Exam Narrative GENERAL: Well-nourished, well-developed patient. SKIN: Warm and dry. HEAD: Normocephalic and atraumatic. EYES: No scleral icterus. No injection or drainage. ENT: No nasal drainage noted. Mucous membranes pink. Airway patent. NECK: Supple, trachea midline. No JVD. CARDIOVASCULAR: Regular rate and rhythm without murmurs, gallops, or rubs. RESPIRATORY: Breath sounds equal bilaterally. No accessory muscle use. BREASTS: Deferred ABDOMEN/GI: Abdomen soft, non-tender, bowel sounds present, no rebound, no guarding Gravid GENITOURINARY: External Genitalia: intact and normal in appearance. Normal BUS. Physiologic discharge. No cervical or vaginal masses appreciated. Normal rugae. SVE 2-3/80/-2, posterior. Membranes intact. Irregular contraction pattern. FHT's: heart rate with baseline in the 120s, moderate long-term variability, good accelerations, no decelerations noted. This is a reactive NST. EXTREMITIES: No cyanosis or edema. BACK: Nontender without obvious deformity. No CVA tenderness. NEUROLOGICAL: Awake and alert. Motor and sensory grossly within normal limits. Five out of 5 muscle strength in all muscle groups. Normal speech. Psychiatric: Grossly normal memory and affect Musculoskeletal: Grossly normal range of motion, gait, muscle strength Data Data Orders Orders Vital Signs (Adult) .ON ADMISSION (02/15/17 14:00) ^ Labor Status (02/15/17 14:00) Betamethasone Inj (Celestone Soluspan In (02/15/17 14:00) MDM Plan Assessment/plan: 1. IUP at 35.3 2. contractions: No evidence of labor today however, of note the patient was seen yesterday with similar vaginal exam but slightly less effaced. Due to contractions and cervical dilation at 35 weeks, it was discussed with Dr. Whitney about administering betamethasone. Dr. Whitney was in agreement and the patient received 1 dose of betamethasone 12 mg today and is to return in 24 hours for repeat dose. Strict labor precautions 3. History of IV drug abuse maintained on Subutex 4. Advanced maternal age 5. well-being: Reassuring testing with reactive NST. FHR reassuring and appropriate for gestational age. kick counts daily. 6. Hepatitis C 7. Follow up with primary OB in 2-3 days or sooner if needed Diagnosis Diagnosis: Primary Impression: 35 weeks gestation of Additional Impression: Threatened premature labor affecting , less than 37 weeks in second trimester, antepartum Disposition: 01 DISCHARGE HOME Condition: Good Patient Instructions: General Instructions, Having Your Baby: The Labor Process (GEN), Movement (ED) Additional Instructions: Return if regular painful contractions, vaginal bleeding, water breaks, decreased movement. Keep regular scheduled appointment. Come back tomorrow for betamethasone injection. Departure Forms: Tests/Procedures Jane Siu MD Feb 15, 2017 14:21
--- NOTE | 2017-02-15 15:45 | PD ---
History of Present Illness History of Present Illness NST report Indications: IUP at 35 weeks, hepatitis C, history of IV drug abuse, currently maintained on Subutex, contractions NST: heart rate baseline is in the 120s with good accelerations and no decelerations noted, there is moderate long-term variability, this is a reactive NST Follow-up: Follow-up as clinically indicated Final diagnosis: IUP at 35 weeks, hepatitis C, history of IV drug abuse, currently maintained on Subutex, contractions, false labor, reassuring testing Jane Siu MD Feb 15, 2017 15:45
== END 2017-02-15 14:22 | disposition home or self-care (01) ==
LOC: HOBED 12:33 → EEVIPCON 12:33 → HOBED 14:22
DX: O47.03 False labor before 37 completed weeks of gestation, third trimester (principal); O09.523 Supervision of elderly multigravida, third trimester; O98.413 Viral hepatitis complicating pregnancy, third trimester; B19.20 Unspecified viral hepatitis C without hepatic coma; O99.333 Smoking (tobacco) complicating pregnancy, third trimester; Z3A.35 35 weeks gestation of pregnancy
CPT/HCPCS: 96372; 99284; J0702

== ENCOUNTER → 2017-02-16 | Outpatient (CLI) | payer MEDICAID ==
[~2017-02-16] MED LIST changes: +BETAMETHASONE SOD PHOS/ACETATE SUSP 30 MG/5 ML VIAL IM ONE; +PREN29TA PO; +SERO200T PO
== END ==
LOC: HOBG 14:16
PROVIDERS: ATTEND Obstetrics & Gynecology Maternal & Fetal Medicine
DX: O60.03 Preterm labor without delivery, third trimester (principal); Z3A.00 Weeks of gestation of pregnancy not specified
CPT/HCPCS: J0702

== ENCOUNTER 2017-02-19 09:43 | Inpatient (IN) | payer MEDICAID ==
[~2017-02-19] VITALS: Ht 165.1 cm; Wt 71.0 kg
[~2017-02-19 09:43] MED LIST changes: -BETAMETHASONE SOD PHOS/ACETATE SUSP 30 MG/5 ML VIAL IM ONE; -PREN29TA PO; -SERO200T PO
[2017-02-19] MEDS ORDERED: PREN29TA PO ×2 (10:18)
[2017-02-19] MEDS ORDERED: LACTATED RINGER'S 1000 ML INJ 1,000 ML IV PRN (10:19)
[2017-02-19] MEDS ORDERED: SERO200T PO ×2 (10:19)
[2017-02-19] MEDS ORDERED: MINERAL OIL 10 ML VIAL TOPICAL PRN (10:30)
[2017-02-19] MEDS ORDERED: LIDOCAINE HCL 1% 50 ML VIAL I-DERMAL PRN (10:30)
[2017-02-19] MEDS ORDERED: CITRIC ACID-SODIUM CITRATE LIQ 30 ML UDC PO SCH (10:30)
[2017-02-19] MEDS ORDERED: OXYTOCIN 30 UNITS-500ML PREMIX 500 ML IV ONE (10:30)
[2017-02-19] MEDS ORDERED: OXYTOCIN 30 UNITS-500ML PREMIX 500 ML IV SCH ×3 (10:30→18:30)
[2017-02-19] MEDS ORDERED: ONDANSETRON HCL 4 MG/2 ML VIAL IV PUSH PRN (10:30)
[2017-02-19] MEDS ORDERED: LIDOCAINE HCL 1% 50 ML VIAL INFIL PRN (10:30)
[2017-02-19] MEDS ORDERED: SODIUM CHLORID 0.9% 500 ML INJ 500 ML IV PRN (10:30)
[2017-02-19] MEDS ORDERED: SODIUM CHLOR 0.9% 1000 ML INJ 1,000 ML IV PRN (10:39)
[2017-02-19 10:48] LABS: BACTERIA, URINE RARE /hpf; BLOOD, URINE SMALL (NEG); COMMENT (UR) CULT NOT INDICATED; CULTURE IF INDICATED CULT NOT INDICATED; GLUCOSE,URINE NEG (NEG); KETONE, URINE NEG (NEG); MUCUS URINE FEW /lpf (OCC); NITRITE,URINE NEG (NEG); SQUAMOUS EPITHELIAL CELL URINE <1 /hpf (0-5); URINE COLOR YELLOW (YELLW/STRAW)
[2017-02-19 10:54] LABS: BASOPHIL # 0.1 TH/MM3 (0-0.2); BASOPHIL % 0.5 % (0.0-2.0); EOSINOPHIL # 0.1 TH/MM3 (0-0.4); EOSINOPHIL % 0.6 % (0.0-4.0); HEMATOCRIT 32.4 % (35.0-46.0); HEMO FLAGS DIFF FINAL; LYMPH % 15.8 % (9.0-44.0); LYMPHOCYTE # 2.4 TH/MM3 (1.0-4.8); MEAN CELL VOLUME 91.7 FL (80.0-100.0); MEAN CORPUSCULAR HEMOGLOBIN 31.2 PG (27.0-34.0); MONO % 12.2 % (0.0-8.0); NEUT % 70.9 % (16.0-70.0); PLATELET COUNT 287 TH/MM3 (150-450); RED BLOOD COUNT 3.53 MIL/MM3 (4.00-5.30); RED CELL DISTRIBUTION WIDTH 13.7 % (11.6-17.2); WHITE BLOOD COUNT 15.5 TH/MM3 (4.0-11.0)
[2017-02-19] MEDS ORDERED: fentaNYL 2MCG-BUPIV 0.125% INJ 100 ML ONE (10:58)
[2017-02-19] MEDS ORDERED: PENICILLIN G POTASSIUM INJ 5,000,000 UNITS in SODIUM CHLORIDE 0.9% INJ 100 ML IV ONE (11:00)
--- NOTE | 2017-02-19 12:39 | MH ---
cc: VIOLETA VASQUEZ DATE OF ADMISSION: 02/19/2017 DATE OF : 1980 REASON FOR ADMISSION A 36-week with substance use disorder, prodromal labor, group B strep and rupture of membranes hopefully in the office but possibly earlier. HISTORY OF PRESENT CONDITION The patient is a very complicated 37-year-old single white female 4, para 1-0-2-1 with LMP unclear but EDC March 19 by 13-week ultrasound, currently at 36 and 0/7 weeks. She is 4 cm and 90% zero station with bloody show and on exam it was not clear if there was fluid or not. Fern is definitely positive. She therefore was sent over with ruptured membranes at 36-weeks. Her is significant for opioid addiction initially methadone. Upon finding out she was the methadone clinic quickly increased her to 170 mg before her 10th week. She came to my practice unable to afford this nodding and having lost her job from falling asleep, we transitioned her to oxycodone and then from oxycodone to Subutex and this occurred before the 20th weeks. Since then she has been on buprenorphine 8 mg t.i.d., Klonopin 1 mg t.i.d. Earlier in the she had also been on Zoloft, Latuda, prazosin, but these have all been weaned, so her only medications at this point are Subutex and Klonopin. She does use Seroquel to sleep at night on occasion. She is hepatitis C negative. She has significant anxiety and depression and has been a difficult patient throughout her . She has been seen essentially weekly and has had communication with me almost daily to maintain her maintenance therapy and avoid relapse. Her general health has otherwise been unremarkable. She has no other chronic or systemic illnesses. She does not drink. She does use caffeine and she does use cigarettes. Her blood type is A+. Her hemoglobin is 13.7. Her Pap smear was normal. She is immune to [place] measles and chickenpox. Hepatitis B was negative. Hepatitis C is negative. GC and Chlamydia were negative. Her Group B strep was positive. She had a hemoglobin A1c that was 5 but we were never able to do a 1-hour Glucola. PHYSICAL EXAMINATION On physical she is a slim white female, clearly agitated and dysphoric on most days. VITAL SIGNS: She is afebrile. Her blood pressure is 110/70. Her weight is 157. She has gained 50 pounds since . She has severe pedal edema of 4+ pitting edema that is painful with decreased pulses. Normal deep tendon reflexes. LUNGS: Her lungs are clear. HEART: Heart is regular. ABDOMEN: Her fundus is 36. The baby has 8 out of 8 biophysical profile with a posterior placenta that is grade 2-3. The baby is vertex and estimated weight is 6 pounds. Even with the question of membranes ruptured her DEBRA today was 11. IMPRESSION A 36-week in an extremely high-risk woman who has substance use disorder, aging placenta, severe edema, Group B strep positive, fern positive and states that she is in such extreme pain and sleep deprivation that she fears she is going to go use if she does not get the pain from her edema and dysphoria under control. She is being admitted for augmentation and anticipation of vaginal delivery. She had one previous term vaginal delivery without complications. Violeta Vasquez MD PPC/TLL /11:52 AM /12:13 PM
[2017-02-19] MEDS: LACTATED RINGER'S 1000 ML INJ 1,000 ML IV SCH ×2 (12:50→18:19)
[2017-02-19] MEDS: fentaNYL 2MCG-BUPIV 0.125% 100 ML EPIDURAL SCH ×2 (12:52→17:12)
[2017-02-19] MEDS ORDERED: BUPRENORPHINE HCL 8 MG SUBLINGUAL TAB SL SCH (13:00)
[2017-02-19] MEDS ORDERED: NO SYSTEM NARCOTICS PRN (13:00)
[2017-02-19] MEDS ORDERED: DO NOT ADMINISTER ANTICOAGULANTS PRN (13:00)
[2017-02-19] MEDS ORDERED: ePHEDrine/NS 25 MG/5 ML SYR IV PUSH PRN (13:00)
[2017-02-19] MEDS ORDERED: clonazePAM 1 MG TAB PO SCH (14:00)
[2017-02-19] MEDS: PENICILLIN G POTASSIUM INJ 2,500,000 UNITS in SODIUM CHLORIDE 0.9% INJ 100 ML IV SCH ×2 (14:22→19:00)
[2017-02-19] MEDS ORDERED: DIPHTH/TETANUS/ACEL PERTUSSIS (BOOSTER) 0.5 ML VIAL/PFS IM ONE (16:00)
[2017-02-19] MEDS ORDERED: MEASLES, MUMPS, RUBELLA VACCINE 0.5 ML VIAL SQ ONE (16:00)
[2017-02-19] MEDS ORDERED: REMOVE OLD NICOTINE PATCH T-DERMAL SCH (17:00)
[2017-02-19] MEDS ORDERED: CALCIUM CARBONATE 500 MG CHEWABLE TAB PO PRN (17:30)
[2017-02-19 18:15] VITALS: RESP 18
[2017-02-19] MEDS ORDERED: DOCUSATE SODIUM 50 MG/SENNA 8.6 MG TAB PO PRN (18:30)
[2017-02-19] MEDS ORDERED: ZOLPIDEM TARTRATE 5 MG TAB PO PRN (18:30)
[2017-02-19] MEDS ORDERED: BENZOCAINE 20% TOPICAL SPRAY 60 ML CAN TOPICAL PRN (18:30)
[2017-02-19] MEDS ORDERED: WITCH HAZEL 50%/GLYCERIN 12.5% 40 PAD JAR TOPICAL PRN (18:30)
[2017-02-19] MEDS ORDERED: ALUMINUM/MAGNESIUM/SIMETH 30 ML CUP PO PRN (18:30)
[2017-02-19] MEDS ORDERED: SODIUM CHLORIDE 0.9% FLUSH 10 ML FLUSH IV FLUSH PRN (18:30)
[2017-02-19] MEDS ORDERED: ONDANSETRON ODT 4 MG TAB PO PRN (18:30)
[2017-02-19] MEDS: NICOTINE 21 MG/24 HR PATCH T-DERMAL SCH (19:01)
--- NOTE | 2017-02-19 19:34 | PD.OB.DELI ---
Weeks gestation: 36 Gest age assessed date: Feb 19, 2017 Gest age assessed time: 19:32 Pt started active labor?: Yes Active labor start date: Feb 19, 2017 Active labor start time: 12:00 Medical induction of labor?: No Artificial rupture of membrane: No Anesthesia: Epidural Episiotomy: None Vaginal Delivery: Normal, Vacuum Presentation: Occiput anterior Nuchal Cord: None Delayed cord clamping (45 sec): Yes : Male Delivery date: Feb 19, 2017 Delivery time: 06:15 One Minute : 8 Five Minute : 9 Weight: 5 7 Placenta: Spontaneous delivery Laceration: No lacerations Estimated blood loss: 250 Lisette Whitney MD Feb 19, 2017 19:34
[2017-02-19] MEDS: IBUPROFEN 600 MG TAB PO PRN (20:04)
[2017-02-19] MEDS ORDERED: SODIUM CHLORIDE 0.9% FLUSH 10 ML FLUSH IV FLUSH SCH (21:00)
[2017-02-19] MEDS: clonazePAM 1 MG TAB PO SCH (23:20)
[2017-02-20] MEDS: ACETAMINOPHEN 325 MG TAB PO PRN ×3 (04:31→19:54)
[2017-02-20] MEDS: IBUPROFEN 600 MG TAB PO PRN ×3 (04:31→19:55)
--- NOTE | 2017-02-20 08:41 | HHI.OB ---
Subjective Post Day: 1 Remarks doing well, baby in room w mom Objective Vitals/I&O Vital Signs Date Time Temp Pulse Resp B/P (MAP) Pulse Ox O2 Delivery O2 Flow Rate FiO2 02/19/17 18:15 18 02/19/17 17:12 18 02/19/17 12:52 18 Objective Remarks GENERAL: Well-nourished, well-developed patient. CARDIOVASCULAR: Regular rate and rhythm without murmurs, gallops, or rubs. RESPIRATORY: Breath sounds equal bilaterally. No accessory muscle use. ABDOMEN/GI: Abdomen soft, non-tender. Fundus: Firm, non-tender at umbilicus. GENITOURINARY: Light to moderate bleeding. EXTREMITIES: No cyanosis or edema, non-tender, without signs of DVT. Medications and IVs Current Medications Medications (Trade) Dose Ordered Sig/Sarina Route Start Time Stop Time Status Last Admin Lactated Ringer's 1,000 ml @ 125 mls/hr Q8H IV 02/19/17 10:02/19/17 12:50 Lactated Ringer's 1,000 ml @ 3,000 mls/hr Q20M PRN IV 02/19/17 10:19 02/19/17 12:50 Sodium Chloride 1,000 ml @ 100 mls/hr Q10H PRN IV 02/19/17 10:39 (Xylocaine 1% Inj (50 ml)) 0.1 ml UNSCH X1 PRN I-DERMAL 02/19/17 10:30 02/22/17 10:29 (Bicitra Liq) 30 ml [employer]ARD INSPECTOR PO 02/19/17 10:30 02/23/17 10:29 (fentaNYL INJ) 50 mcg Q1H PRN IV PUSH 02/19/17 10:30 (fentaNYL INJ) 100 mcg Q1H PRN IV PUSH 02/19/17 10:30 (Xylocaine 1% Inj (50 ml)) 10 ml UNSCH X1 PRN INFIL 02/19/17 10:30 02/21/17 10:29 (Muri-Lube Oil) 10 ml UNSCH PRN TOPICAL 02/19/17 10:30 Miscellaneous Information No systemic narcotics to be given except... UNSCH PRN .XX 02/19/17 13:00 02/20/17 12:59 Miscellaneous Information DO NOT ADMINISTER ANY ANTICOAGUL... UNSCH PRN .XX 02/19/17 13:00 02/20/17 12:59 Fentanyl/ Bupivacaine HCl 100 ml @ 10 mls/hr TITRATE EPIDURAL 02/19/17 13:00 02/19/17 17:12 (ePHEDrine/NS 25 MG/5 ML SYR) 10 mg UNSCH PRN IV PUSH 02/19/17 13:00 02/20/17 12:59 (Habitrol 21 Mg Patch.24 Hr) 1 patch Q24H T-DERMAL 02/19/17 17:00 02/19/17 19:01 Miscellaneous Information 1 Q24H T-DERMAL 02/19/17 17:00 (Tums Chew) 1,000 mg Q4H PRN PO 02/19/17 17:30 Oxytocin 500 ml @ 1 mls/hr TITRATE IV 02/19/17 17:45 (NS Flush) 2 ml BID IV FLUSH 02/19/17 21:00 (NS Flush) 2 ml UNSCH PRN IV FLUSH 02/19/17 18:30 (Tylenol) 650 mg Q4H PRN PO 02/19/17 18:30 02/20/17 04:31 (Motrin) 600 mg Q6H PRN PO 02/19/17 18:30 02/20/17 04:31 (Americaine 20% Top Spr) 1 spray Q4H PRN TOPICAL 02/19/17 18:30 (Tucks Pads) 1 applic QID PRN TOPICAL 02/19/17 18:30 (Yasmin-Colace) 2 tab Q12H PRN PO 02/19/17 18:30 (Ambien) 5 mg HS PRN PO 02/19/17 18:30 (Mag-Al Plus Susp Liq) 15 ml Q8H PRN PO 02/19/17 18:30 (Zofran Odt) 4 mg Q6H PRN PO 02/19/17 18:30 (Buprenorphine) 8 mg TID SL 02/20/17 09:00 (KlonoPIN) 1 mg Q8HR PO 02/19/17 22:00 02/19/17 23:20 (SEROquel) 200 mg HS PO 02/20/17 21:00 Assessment/Plan Problem List: (1) (spontaneous vaginal delivery) ICD Codes: O80 - Encounter for full-term uncomplicated delivery (2) Opioid use disorder, moderate, in controlled environment ICD Codes: F11.20 - Opioid dependence, uncomplicated Status: Acute Assessment and Plan PPD 1 Doing well, wants to try breast feeding, will have research consultant visit her opiod use- under care of Dr. Castro, pain well controlled at present. Christel Hannon MD Feb 20, 2017 08:41
[2017-02-20] MEDS: clonazePAM 1 MG TAB PO SCH ×2 (09:38→18:16)
[2017-02-20] MEDS: BUPRENORPHINE HCL 8 MG SUBLINGUAL TAB SL SCH ×3 (09:38→18:16)
[2017-02-20] MEDS: NICOTINE 21 MG/24 HR PATCH T-DERMAL SCH (17:20)
[2017-02-20] MEDS ORDERED: QUEtiapine FUMARATE 200 MG TAB PO SCH (21:00)
[2017-02-21] MEDS: clonazePAM 1 MG TAB PO SCH ×2 (01:56→09:32)
[2017-02-21] MEDS: IBUPROFEN 600 MG TAB PO PRN ×2 (01:57→08:24)
[2017-02-21] MEDS: ACETAMINOPHEN 325 MG TAB PO PRN (08:23)
[2017-02-21] MEDS: LACTATED RINGER'S 1000 ML INJ 1,000 ML IV SCH (09:12)
[2017-02-21] MEDS: BUPRENORPHINE HCL 8 MG SUBLINGUAL TAB SL SCH (09:32)
--- NOTE | 2017-02-21 10:07 | HHI.OB ---
Subjective Post Day: 2 Remarks PPD#2, , Stable,pain controlled Objective Objective Remarks GENERAL: Well-nourished, well-developed patient. CARDIOVASCULAR: Regular rate and rhythm without murmurs, gallops, or rubs. RESPIRATORY: Breath sounds equal bilaterally. No accessory muscle use. ABDOMEN/GI: Abdomen soft, non-tender. Fundus: Firm, non-tender at umbilicus. GENITOURINARY: Light to moderate bleeding. EXTREMITIES: No cyanosis or edema, non-tender, without signs of DVT. Medications and IVs Current Medications Medications (Trade) Dose Ordered Sig/Sarina Route Start Time Stop Time Status Last Admin Lactated Ringer's 1,000 ml @ 125 mls/hr Q8H IV 02/19/17 10:02/19/17 12:50 Lactated Ringer's 1,000 ml @ 3,000 mls/hr Q20M PRN IV 02/19/17 10:19 02/19/17 12:50 Sodium Chloride 1,000 ml @ 100 mls/hr Q10H PRN IV 02/19/17 10:39 (Xylocaine 1% Inj (50 ml)) 0.1 ml UNSCH X1 PRN I-DERMAL 02/19/17 10:30 02/22/17 10:29 (Bicitra Liq) 30 ml CLOTH SP[employer] SCREEN [employer]INTING PO 02/19/17 10:30 02/23/17 10:29 (fentaNYL INJ) 50 mcg Q1H PRN IV PUSH 02/19/17 10:30 (fentaNYL INJ) 100 mcg Q1H PRN IV PUSH 02/19/17 10:30 (Xylocaine 1% Inj (50 ml)) 10 ml UNSCH X1 PRN INFIL 02/19/17 10:30 02/21/17 10:29 (Muri-Lube Oil) 10 ml UNSCH PRN TOPICAL 02/19/17 10:30 Fentanyl/ Bupivacaine HCl 100 ml @ 10 mls/hr TITRATE EPIDURAL 02/19/17 13:00 02/19/17 17:12 (Habitrol 21 Mg Patch.24 Hr) 1 patch Q24H T-DERMAL 02/19/17 17:00 02/20/17 17:20 Miscellaneous Information 1 Q24H T-DERMAL 02/19/17 17:00 (Tums Chew) 1,000 mg Q4H PRN PO 02/19/17 17:30 Oxytocin 500 ml @ 1 mls/hr TITRATE IV 02/19/17 17:45 (NS Flush) 2 ml BID IV FLUSH 02/19/17 21:00 (NS Flush) 2 ml UNSCH PRN IV FLUSH 02/19/17 18:30 (Tylenol) 650 mg Q4H PRN PO 02/19/17 18:30 02/21/17 08:23 (Motrin) 600 mg Q6H PRN PO 02/19/17 18:30 02/21/17 08:24 (Americaine 20% Top Spr) 1 spray Q4H PRN TOPICAL 02/19/17 18:30 (Tucks Pads) 1 applic QID PRN TOPICAL 02/19/17 18:30 (Yasmin-Colace) 2 tab Q12H PRN PO 02/19/17 18:30 02/20/17 12:25 (Ambien) 5 mg HS PRN PO 02/19/17 18:30 (Mag-Al Plus Susp Liq) 15 ml Q8H PRN PO 02/19/17 18:30 (Zofran Odt) 4 mg Q6H PRN PO 02/19/17 18:30 (Buprenorphine) 8 mg TID SL 02/20/17 09:00 02/21/17 09:32 (SEROquel) 200 mg HS PO 02/20/17 21:00 (KlonoPIN) 1 mg Q8H PO 02/20/17 18:00 02/21/17 09:32 Assessment/Plan Problem List: (1) (spontaneous vaginal delivery) ICD Codes: O80 - Encounter for full-term uncomplicated delivery (2) Opioid use disorder, moderate, in controlled environment ICD Codes: F11.20 - Opioid dependence, uncomplicated Status: Acute Assessment and Plan PPD 2 Doing well, Infant admitted to Peds, she will go with baby as close stay opiod use- under care of Dr. Castro, pain well controlled at present. Discharge Planning Discharge to PEDS Attending Attestation seen by Parth James MD Feb 21, 2017 10:07
--- NOTE | 2017-02-21 10:13 | HHI.DS ---
Admission Date Feb 19, 2017 at 09:43 Admitting Diagnosis Diagnosis: Delivery Date: Feb 19, 2017 Vaginal Delivery: Normal : Male Pt Condition on Discharge: Good Discharge Disposition: Discharge Home (Going with infant to PEDS as close stay) Discharge Instructions Diet Instructions: As Tolerated, No Restrictions Activities You Can Perform: Shower Only-No Bath Activities to Avoid: Driving for 24 hrs, Prolonged Standing, Strenuous Activity , Sexual Activity Parth Grace MD Feb 21, 2017 10:13
[2017-02-22 08:44] LABS: BATH SALTS (MDPV) UR NEG (NEG); ECSTASY (MDMA) UR NEG (NEG); GABAPENTIN UR NEG (NEG); HEROIN (6-ACETYLMORPHINE) UR NEG (NEG); HYDROMORPHONE U NEG (NEG); K2 SPICE UR NEG (NEG); OBMETHADONE UR NEG (NEG); PHENCYCLIDINE URINE NEG (NEG)
== END 2017-02-21 12:42 | disposition home or self-care (01) | DRG 775 ==
LOC: EEVIPCON 09:43 → H2EA 09:43 → H1EA 21:29
PROVIDERS: ADMIT Obstetrics & Gynecology; ATTEND Obstetrics & Gynecology
PROC: 10D07Z6 Extraction of Products of Conception, Vacuum, Via Natural or Artificial Opening (ICD-10-PCS; principal; 2017-02-19)
DX: O42.913 Preterm premature rupture of membranes, unspecified as to length of time between rupture and onset of labor, third trimester (principal); F11.20 Opioid dependence, uncomplicated; O99.324 Drug use complicating childbirth; F32.9 Major depressive disorder, single episode, unspecified; F41.9 Anxiety disorder, unspecified; O99.344 Other mental disorders complicating childbirth; O99.334 Smoking (tobacco) complicating childbirth; F17.210 Nicotine dependence, cigarettes, uncomplicated; O99.824 Streptococcus B carrier state complicating childbirth; Z3A.36 36 weeks gestation of pregnancy; Z37.0 Single live birth
CPT/HCPCS: 59025; 80307; 81001; 85025; 86900; 86901; J2540; J2590; J7120

== ENCOUNTER → 2017-04-18 | Day surgery (SDC) | payer MEDICAID ==
--- NOTE | 2017-04-17 10:20 | MH ---
cc: VIOLETA VASQUEZ DATE OF ADMISSION: 04/18/2017 DATE OF 1980 SCHEDULED PROCEDURES tubal ligation with laparoscope. HISTORY OF PRESENT CONDITION The patient is a 36-year-old single white female para 2 who is status post delivery of her second child 2 months ago vaginally. Her history and was complicated. I met her when she was on 170 mg of methadone in her first trimester, rapidly increased by the [facility] [place] and it caused her job could no longer afford the methadone and was in a bad way. We were able to transition to oxy and then Subutex and she remained compliant throughout the entire with one episode of using due to severe stress. Her anxiety disorder was profound during the and that was treated concurrently. The baby did well although now is being treated for meningitis at [facility]. She has been smoking one pack a day since the baby stress. She does note that she has had some wheezes because of that. She desires to have no more children. She does not want to use the pill. She does not want an IUD. She is not involved with a partner at this time. She wants permanent sterilization and she understands that there is a risk of failure, that it must be considered permanent. She is comfortable with these issues. OB HISTORY She has had one other child vaginally. I think it was 9 years ago. SOCIAL HISTORY She does not drink or use any illicit drugs at this time. MEDICATIONS 1. Subutex 8 mg t.i.d. 2. Klonopin 1 mg t.i.d. 3. Seroquel 50 q.h.s. 4. Paxil 25 mg daily. FAMILY HISTORY Really noncontributory. PHYSICAL EXAMINATION VITAL SIGNS: Her weight is 130, her height is 5'5". Her blood pressure is 100/60. ALLERGIES: She has no allergies. NECK: She has no thyroid enlargement. LUNGS: Showing end-expiratory wheezes. HEART: Rate and rhythm are regular. BREASTS: With minimal galactorrhea. No masses or discharge. ABDOMEN: Benign. PELVIC: Perineum is estrogenized. Vault elevated. Cervix is multiparous. Uterus is small. Ovaries are not palpable. SKIN: She does have a rash on her fingers that looks like a fungal rash is cracking and quite painful. IMPRESSION AT THIS TIME 1. Multiparity. 2. Substance use disorder on maintenance therapy. 3. Fungal infection on fingers. PLAN 1. Proceed with a tubal on Sunday. 2. She was given some topical triamcinolone for her fingers. 3. She is being maintained on her other medications as needed. The risks, benefits, expectations, failure rate and alternatives have been described in detail. She has signed consents and is scheduled for the morning. Violeta Vasquez MD PPC/SSB /9:24 AM /9:32 AM
[~2017-04-18] MED LIST changes: +ACETAMINOPHEN 1000 MG/100 ML 100 ML IV ONE; -HYDR1CAP30 PO; +KETOROLAC TROMETHAMINE 30 MG/ML (IVP) VIAL IV PUSH ONE; +KETOROLAC TROMETHAMINE 30 MG/ML (IVP) VIAL ONE; +LACTATED RINGER'S 1000 ML INJ 1,000 ML ONE; +MIDAZOLAM HCL 2 MG/2 ML VIAL ONE; -NEUR300C PO; +PREN29TA PO; -PROM25TA5 PO; +PROPOFOL 200 MG/20 ML AMP IV ONE; -REGL10TA5 PO; +SERO200T PO; -ZANTTAB PO; -ZOLO50TA PO; +ceFAZolin INJ 1,000 MG VIAL ONE
--- NOTE | 2017-04-18 13:32 | MP ---
cc: VIOLETA VASQUEZ DATE OF SURGERY: April 18, 2017 PREOPERATIVE DIAGNOSIS Multiparity. POSTOPERATIVE DIAGNOSIS Multiparity. PROCEDURE PERFORMED Laparoscopic tubal ligation. ANESTHESIA General. SURGEON Violeta Vasquez MD FINDINGS Normal tubes. PROCEDURE The patient was identified as Ms. Hein. The procedure was reviewed with her in holding. She received 1 gram of Ancef. She was taken to the operating room, prepped and draped after receiving general endotracheal anesthesia in the dorsal lithotomy position. A time-out was performed. Her bladder was emptied with a red rubber catheter. Exam under anesthesia was performed. The cervix was grasped with a single-tooth tenaculum and an acorn tenaculum applied. Then attention was directed to the abdomen. A 5 mm incision was made in the umbilicus and one in the suprapubic area. Both were infiltrated with lidocaine both before and after the procedure. Then 5 mm trocar and sleeve were placed into both incisions and pneumoperitoneum was created. Systematic evaluation of the abdominal and pelvic cavity was performed, everything was normal. A Kleppinger was placed through the suprapubic port and tubes grasped with care to avoid other structures, such as bowel, bladder or the uterus. The tubes were each burned in three places and then laparoscopic scissors was placed and they were cut in the same places. There was no bleeding. There was no evidence of iatrogenic injury. There was no intrinsic pathology. Sponge, instrument, needle count were correct. The pneumoperitoneum was released. She was given Ofirmev to help with pain management and the incisions were closed with a single suture. The vaginal instrumentation was removed. She was placed in a dorsal supine position, awoken and taken to the recovery room in stable condition. Violeta Vasquez MD PPC/TLL /1:02 PM /1:06 PM
== END | disposition home or self-care (01) ==
LOC: ESDC 10:24
PROVIDERS: ATTEND Obstetrics & Gynecology
DX: Z30.2 Encounter for sterilization (principal)
CPT/HCPCS: 00851; 58670; J0131; J0690; J1885; J2250; J3010; J7120